=== PATIENT | female | born 1950 | race Caucasian/White ===

== ENCOUNTER → 2017-10-30 12:10 | Outpatient (CLI) | payer MEDICARE, OTHER, SELFPAY ==
--- NOTE | 2017-10-30 | DI.MG.S_ITS ---
BILATERAL DIGITAL SCREENING MAMMOGRAM 3D/2D WITH CAD: 10/30/2017 CLINICAL: Routine screening. Family history of breast cancer. Comparison is made to exams dated: 05/25/2016 mammogram, 01/05/2015 mammogram, and 01/20/2014 mammogram - [facility]. The tissue of both breasts is heterogeneously dense. This may lower the sensitivity of mammography. Current study was also evaluated with a Computer Aided Detection (CAD) system. No significant masses, calcifications, or other findings are seen in either breast. There has been no significant interval change. IMPRESSION: NEGATIVE There is no mammographic evidence of malignancy. A 1 year screening mammogram is recommended. This exam was interpreted at Station ID: [id number]. NOTE: For mammograms, a report in lay terms will be sent to the patient. Approximately 15% of breast malignancies will not be visualized mammographically. In the management of a palpable breast mass, a negative mammogram must not discourage biopsy of a clinically suspicious lesion. Electronically Signed By: Blanca prince/cade:10/30/2017 17:03:24 letter sent: Normal Exam ACR BI-RADS Category 1: Negative 3341F
== END ==
PROVIDERS: PCP Family Medicine; Visit Provider Family Medicine
DX: Z12.31 Encounter for screening mammogram for malignant neoplasm of breast (principal); Z80.3 Family history of malignant neoplasm of breast; M85.851 Other specified disorders of bone density and structure, right thigh
CPT/HCPCS: 77063; 77067; 77080

== ENCOUNTER → 2018-04-29 14:30 | Outpatient (CLI) | payer MEDICARE, OTHER, SELFPAY ==
[2018-04-29 14:52] LABS: Hematocrit 40.4 % (36-46); Hemoglobin 14.1 g/dL (12.0-16.0)
== END ==
PROVIDERS: PCP Family Medicine; Visit Provider Family Medicine
DX: Z01.812 Encounter for preprocedural laboratory examination (principal)
CPT/HCPCS: 36415; 85014; 85018

== ENCOUNTER → 2018-04-30 15:44 | Outpatient (CLI) | payer MEDICARE, OTHER, SELFPAY ==
--- NOTE | 2018-04-30 15:46 | DI.CT.S_ITS ---
PROCEDURE: CT CHEST WO CON INDICATIONS: chronic cough TECHNIQUE: Noncontrast 5 mm thick sections acquired from the pulmonary apices to the posterior costophrenic angles. 7 mm thick coronal and sagittal MIP reformats were then acquired. For radiation dose reduction, the following was used: automated exposure control, adjustment of mA and/or kV according to patient size. COMPARISON: None. FINDINGS: Image quality: Excellent. Lungs and pleura: No acute air space opacities. No pleural effusions or pneumothorax. Central and peripheral airways are patent and normal in caliber. Mediastinum: Heart size is normal. No pericardial effusion. No mediastinal adenopathy by size criteria. Thoracic aorta and central pulmonary arteries are normal in size. Esophagus is normal in caliber. No hiatal hernia. Bones and chest wall: No suspicious bony lesions. No vertebral body compression fractures. No axillary or supraclavicular adenopathy by size criteria. Thyroid gland appears normal where well visualized. Abdomen: Visualized upper abdominal solid organs and bowel loops appear normal in the absence of contrast. IMPRESSION: Normal for age, source of current symptoms is not seen. Dictated by: James Roe M.D. on 04/30/2018 at 17:03 Approved by: James Roe M.D. on 04/30/2018 at 17:03
== END ==
PROVIDERS: PCP Family Medicine; Visit Provider Family Medicine
DX: R05 Cough (principal)
CPT/HCPCS: 71250

== ENCOUNTER → 2018-05-24 08:33 | Outpatient (CLI) | payer MEDICARE, OTHER, SELFPAY ==
--- NOTE | 2018-05-30 11:58 | PM.PFT.1 ---
Pulmonary Function Test Referral & Results Date Patient Seen: 05/24/18 Requesting provider: Alok Watson Indication: Cough Results: The spirometry demonstrates an FVC of 3.57 L which is 115% of predicted. The FEV1 was measured at 2.68 L which is 113% of predicted. The FEV1/FVC ratio was 75 which is 97% of predicted. Following the administration of bronchodilator there was no appreciable change to above normal numbers. Lung volumes show an SVC of 3.64 L which is 124% of predicted. The diffusing capacity was measured at 18.19 which is 74% of predicted. No hemoglobin value was provided, so no correction for potential anemia could be made, if appropriate. The maximum voluntary ventilation was normal Interpretation: This study demonstrates normal spirometry and slight reduction in diffusing capacity suggesting some element of disease at the capillary alveolar level Patient's flow volume loop does have a bit of a curve to his suggesting the possibility of some very minimal element of obstructive lung disease based on that alone although again spirometric numbers were normal Clinical correlation suggested
== END ==
PROVIDERS: PCP Family Medicine; Visit Provider Family Medicine
DX: R05 Cough (principal)
CPT/HCPCS: 94060; 94726; 94729

== ENCOUNTER → 2018-07-16 07:02 | Outpatient (CLI) | payer MEDICARE, OTHER, SELFPAY ==
[2018-07-16 09:15] LABS: Cholesterol 227 mg/dL (140-199); HDL Cholesterol 34 mg/dL (40-60); LDL Cholesterol Calculated 118 mg/dL (<100); Triglycerides 374 mg/dL (35-150)
[2018-07-16 09:33] LABS: Free T3, Triiodothyronine Free 3.91 pg/mL (2.77-5.27); T4 Total Thyroxine 6.29 ug/dL (5.5-11.0)
[2018-07-16 09:47] LABS: Thyroid Stimulating Hormone 0.93 uIU/mL (0.47-4.68)
== END ==
PROVIDERS: PCP Family Medicine; Visit Provider Family Medicine
DX: E03.9 Hypothyroidism, unspecified (principal); E78.2 Mixed hyperlipidemia; R73.03 Prediabetes; Z78.9 Other specified health status
CPT/HCPCS: 36415; 80061; 84436; 84443; 84481

== ENCOUNTER → 2018-11-07 07:44 | Outpatient (CLI) | payer MEDICARE, OTHER, SELFPAY ==
--- NOTE | 2018-11-07 07:45 | DI.MG.S_ITS ---
BILATERAL DIGITAL SCREENING MAMMOGRAM 3D/2D WITH CAD: 11/07/2018 CLINICAL: Routine screening. Family history of breast cancer. Comparison is made to exams dated: 10/30/2017 mammogram, 05/25/2016 mammogram, and 01/05/2015 mammogram - [facility]. The tissue of both breasts is heterogeneously dense. This may lower the sensitivity of mammography. Current study was also evaluated with a Computer Aided Detection (CAD) system. No significant masses, calcifications, or other findings are seen in either breast. There has been no significant interval change. IMPRESSION: NEGATIVE There is no mammographic evidence of malignancy. A 1 year screening mammogram is recommended. This exam was interpreted at Station ID: [id number]. NOTE: For mammograms, a report in lay terms will be sent to the patient. Approximately 15% of breast malignancies will not be visualized mammographically. In the management of a palpable breast mass, a negative mammogram must not discourage biopsy of a clinically suspicious lesion. Electronically Signed By: Daren guerrier/cade:11/07/2018 09:42:16 letter sent: Normal Exam ACR BI-RADS Category 1: Negative 3341F
== END ==
PROVIDERS: PCP Family Medicine; Visit Provider Family Medicine
DX: Z12.31 Encounter for screening mammogram for malignant neoplasm of breast (principal); Z80.3 Family history of malignant neoplasm of breast
CPT/HCPCS: 77063; 77067

== ENCOUNTER → 2019-01-02 11:37 | Outpatient (CLI) | payer MEDICARE, OTHER, SELFPAY ==
--- NOTE | 2019-01-02 11:41 | DI.RAD.S_ITS ---
PROCEDURE: XR LUMBAR SPINE 2-3V INDICATIONS: Low back pain TECHNIQUE: 3 views of the lumbar spine were acquired. COMPARISON: None. FINDINGS: Bones: 5 [id number] vertebrae are present. There is grade I L5 on S1 anterolisthesis. Mild degenerative changes including intervertebral disc space narrowing, endplate sclerosis, and facet sclerosis are present throughout the mid and lower lumbar spine. No vertebral body compression fractures. No suspicious bony lesions. Soft tissues: Overlying bowel gas pattern is normal. Atheromatous calcifications are present throughout the abdominal aorta. IMPRESSION: Mild degenerative change. Aortic atherosclerosis. Dictated by: Blanca Major M.D. on 01/02/2019 at 12:28 Approved by: Blanca Major M.D. on 01/02/2019 at 12:29
== END ==
PROVIDERS: PCP Family Medicine; Visit Provider Family Medicine
DX: M47.816 Spondylosis without myelopathy or radiculopathy, lumbar region (principal); M47.817 Spondylosis without myelopathy or radiculopathy, lumbosacral region; M54.5 Low back pain
CPT/HCPCS: 72100

== ENCOUNTER → 2019-01-09 07:19 | Outpatient (CLI) | payer MEDICARE, OTHER, SELFPAY ==
--- NOTE | 2019-01-09 07:21 | DI.MRI.S_ITS ---
PROCEDURE: MR LUMBAR SPINE WO CON INDICATIONS: Pain TECHNIQUE: Noncontrast sagittal T1 spin echo and T2 fast echo, sagittal STIR, axial T1 and T2 fast spin echo through the lumbar spine. In cases with scoliosis, additional coronal T2 fast spin echo may be performed. COMPARISON: None. FINDINGS: Image quality: Excellent. Alignment and Curvature: There is minimal anterolisthesis seen at the L5-S1 level. Associated pars defects are not seen on these images. Bone Marrow: Marrow is of normal overall signal. No acute vertebral body compression fractures. Spinal Cord: Conus medullaris terminates at the L1 level. Visualized cord demonstrates normal signal and size. Paraspinous Soft Tissues: No paravertebral masses. A simple appearing cyst is seen along the lateral aspect of the right kidney that measures 1.6 cm. T11-T12: Bridging endplate osteophytes are seen. Mild to moderate disc bulge is seen. There is mild to moderate left-sided and no significant right-sided neural foraminal narrowing seen. No significant central canal is seen. T12-L1: Normal appearance. L1-L2: Normal appearance. L2-L3: No significant abnormality is seen. L3-L4: Mild loss of disc height is seen. Loss of disc signal is seen. Mild to moderate disc bulge is seen. Nmum-or-tepknkbw facet hypertrophy is seen. No significant neural foraminal narrowing can be seen. Mild central canal narrowing is seen. L4-L5: The disc height is well-preserved. Loss of disc signal is seen at this level. Mild to moderate disc bulge is seen, which is eccentric to the right. Moderate facet joint hypertrophy is seen. No significant neural foraminal or central canal narrowing can be seen. L5-S1: The disc height is well-preserved. Loss of disc signal is seen at this level. Mild generalized disc bulge is seen. Moderate to prominent facet joint hypertrophy is seen. There is moderate left-sided and moderate to severe right-sided neural foraminal narrowing seen. There is associated compression seen upon the exiting right L5 nerve root. No central canal narrowing is seen. IMPRESSION: Lumbar spine degenerative changes are seen, which are most prominent at the L5-S1 level. At this level, there is moderate to severe right-sided neural foraminal narrowing, with associated exiting nerve compression involving the right L5 nerve root. Dictated by: Job Browne M.D. on 01/09/2019 at 10:47 Approved by: Job Browne M.D. on 01/09/2019 at 10:52
== END ==
PROVIDERS: PCP Family Medicine; Visit Provider Family Medicine
DX: M54.5 Low back pain (principal); M47.817 Spondylosis without myelopathy or radiculopathy, lumbosacral region; M47.816 Spondylosis without myelopathy or radiculopathy, lumbar region; M48.061 Spinal stenosis, lumbar region without neurogenic claudication; M48.07 Spinal stenosis, lumbosacral region
CPT/HCPCS: 72148

== ENCOUNTER → 2019-04-29 06:42 | Outpatient (CLI) | payer MEDICARE, OTHER, SELFPAY ==
[2019-04-29 08:14] LABS: Add Manual Diff / Slide Review NO; Basophils Absolute Auto 100 /uL (0-100); Basophils Percent Auto 1.4 % (0-2); Eosinophils Absolute Auto 300 /uL (0-450); Eosinophils Percent Auto 4.9 % (2-4); Hematocrit 41.6 % (36-46); Hemoglobin 14.4 g/dL (12.0-16.0); Lymphocytes Absolute Auto 2500 /uL (1100-4500); Lymphocytes Percent Auto 47.9 % (25-40); Mean Corpuscular HGB Conc 34.6 % (30-36); Mean Corpuscular Hemoglobin 31.9 PG (26-34); Mean Corpuscular Volume 92.3 fL (80-100); Monocytes Absolute Auto 300 /uL (0-900); Monocytes Percent Auto 6.7 % (3-14); Neutrophils Absolute Auto 2000 /uL (1500-7000); Neutrophils Percent Auto 39.1 % (50-75); Platelet Count 207 X10^3/uL (150-400); Red Blood Cell Count 4.51 X10^6/uL (4.0-5.2); Red Cell Distribution Width 12.6 % (11.6-14.8); White Blood Cell Count 5.2 X10^3/uL (4.5-11.0)
[2019-04-29 08:24] LABS: Hemoglobin A1C% w Est Avg Glu 5.9 % (4.0-6.0)
[2019-04-29 08:31] LABS: Alanine Aminotransferase 21 IU/L (<35); Albumin 4.5 g/dL (3.5-5.0); Albumin Globulin Ratio 1.7 (1.0-2.8); Alkaline Phosphatase 69 U/L (38-126); Aspartate Aminotransferase 24 IU/L (14-36); Bilirubin Total 0.6 mg/dL (0.2-1.3); Blood Urea Nitrogen 20 mg/dL (7-17); Calcium 9.4 mg/dL (8.4-10.2); Carbon Dioxide 30 mmol/L (22-32); Chloride 102 mmol/L (98-107); Cholesterol 242 mg/dL (140-199); Estimated Glomerular Filt Rate > 60.0 mL/min (>60); Globulin 2.7 g/dL (1.7-4.1); Glucose 129 mg/dL (80-110); HDL Cholesterol 28 mg/dL (40-60); HEMOLYSIS < 15 (0-50); Sodium 141 mmol/L (137-145); Total Protein 7.2 g/dL (6.3-8.2)
[2019-04-29 08:44] LABS: Triglycerides 634 mg/dL (35-150)
[2019-04-29 08:57] LABS: Thyroid Stimulating Hormone 1.14 uIU/mL (0.47-4.68)
== END ==
PROVIDERS: PCP Family Medicine; Visit Provider Family Medicine
DX: R73.03 Prediabetes (principal)
CPT/HCPCS: 36415; 80053; 80061; 83036; 84443; 85025

== ENCOUNTER → 2019-08-25 06:56 | Outpatient (CLI) | payer MEDICARE, OTHER, SELFPAY ==
[2019-08-25 07:45] LABS: Cholesterol 272 mg/dL (140-199); HDL Cholesterol 30 mg/dL (40-60); Triglycerides 457 mg/dL (35-150)
== END ==
PROVIDERS: PCP Family Medicine; Referring Provider Family Medicine; Visit Provider Family Medicine
DX: E78.2 Mixed hyperlipidemia (principal)
CPT/HCPCS: 36415; 80061

== ENCOUNTER → 2019-08-26 09:58 | Outpatient (CLI) | payer MEDICARE, OTHER, SELFPAY ==
--- NOTE | 2019-08-26 10:01 | DI.RAD.S_ITS ---
PROCEDURE: XR SHOULDER LT MIN 2V INDICATIONS: Pain TECHNIQUE: 3 views of the shoulder were acquired. COMPARISON: None. FINDINGS: Bones: No fractures or dislocations. No suspicious bony lesions. Visualized ribs appear intact. Soft tissues: No suspicious soft tissue calcifications. IMPRESSION: Mild to moderate degenerative osteoarthritic change at the a.c. joint. Mild osteoarthritis at the glenohumeral joint. Dictated by: James Roe M.D. on 08/26/2019 at 10:47 Approved by: James Roe M.D. on 08/26/2019 at 10:48
--- NOTE | 2019-08-26 10:01 | DI.RAD.S_ITS ---
PROCEDURE: XR SHOULDER RT MIN 2V INDICATIONS: Pain TECHNIQUE: 3 views of the shoulder were acquired. COMPARISON: [facility], CR, XR SHOULDER LT MIN 2V, 08/26/2019, 10:00. FINDINGS: Bones: No fractures or dislocations. No suspicious bony lesions. Visualized ribs appear intact. Soft tissues: No suspicious soft tissue calcifications. IMPRESSION: Mild to moderate a.c. joint osteoarthritis, moderate glenohumeral joint osteoarthritis. The osteoarthritic changes greater on the right than the left at the glenohumeral joint. Dictated by: James Roe M.D. on 08/26/2019 at 10:48 Approved by: James Roe M.D. on 08/26/2019 at 10:48
== END ==
PROVIDERS: PCP Family Medicine; Referring Provider Family Medicine; Visit Provider Family Medicine
DX: M25.611 Stiffness of right shoulder, not elsewhere classified (principal); M19.011 Primary osteoarthritis, right shoulder; M25.512 Pain in left shoulder; M19.012 Primary osteoarthritis, left shoulder
CPT/HCPCS: 73030

== ENCOUNTER → 2019-12-17 09:19 | Outpatient (CLI) | payer MEDICARE, OTHER, SELFPAY ==
--- NOTE | 2019-12-17 | DI.US.S_ITS ---
ULTRASOUND OF LEFT BREAST: 12/17/2019 CLINICAL: Area redness left axilla. Comparison is made to exams dated: 12/17/2019 mammogram, 11/07/2018 mammogram, 10/30/2017 mammogram, and 05/25/2016 mammogram - [facility]. Ultrasound of the left breast was performed on the area of interest. Calderon scale images of the real-time examination were reviewed. IMPRESSION: NEGATIVE There is no sonographic evidence of malignancy. There is no mammographic or sonographic abnormality seen in the left axilla to correspond with the area of clinical concern in the left axilla, however, clinical followup is recommended. Return to annual mammogram screening schedule is recommended. This exam was interpreted at Station ID: [id number]. Electronically Signed By: Blanca prince/:12/17/2019 15:31:53 letter sent: Clinical Evaluation Ultrasound BI-RADS: 1 Negative
--- NOTE | 2019-12-17 09:20 | DI.MG.S_ITS ---
BILATERAL DIGITAL DIAGNOSTIC MAMMOGRAM 3D/2D: 12/17/2019 CLINICAL: Left axilla lymph node. Comparison is made to exams dated: 11/07/2018 mammogram, 10/30/2017 mammogram, and 05/25/2016 mammogram - [facility]. The tissue of both breasts is heterogeneously dense. This may lower the sensitivity of mammography. No significant masses, calcifications, or other findings are seen in either breast. IMPRESSION: INCOMPLETE: NEEDS ADDITIONAL IMAGING EVALUATION There is no mammographic abnormality seen in the left axilla to correspond with the area of clinical concern in the left axilla, however, A targeted ultrasound of the left axilla is recommended and will be performed immediately following this exam. This exam was interpreted at Station ID: [id number]. NOTE: For mammograms, a report in lay terms will be sent to the patient. Approximately 15% of breast malignancies will not be visualized mammographically. In the management of a palpable breast mass, a negative mammogram must not discourage biopsy of a clinically suspicious lesion. Electronically Signed By: Blnaca Major M.D. lk/:12/17/2019 09:55:23 ACR BI-RADS Category 0: Incomplete 3340F
== END ==
PROVIDERS: PCP Family Medicine; Referring Provider Nurse Practitioner Family; Visit Provider Nurse Practitioner Family
DX: R92.8 Other abnormal and inconclusive findings on diagnostic imaging of breast (principal); R59.0 Localized enlarged lymph nodes
CPT/HCPCS: 76882; 77066; G0279

== ENCOUNTER → 2020-03-16 07:00 | Outpatient (CLI) | payer MEDICARE, OTHER, SELFPAY ==
[2020-03-16 09:00] LABS: Add Manual Diff / Slide Review NO; Basophils Absolute Auto 100 /uL (0-100); Basophils Percent Auto 1.1 % (0-2); Eosinophils Absolute Auto 200 /uL (0-450); Eosinophils Percent Auto 3.4 % (2-4); Hematocrit 39.1 % (36-46); Hemoglobin 13.6 g/dL (12.0-16.0); Lymphocytes Absolute Auto 2200 /uL (1100-4500); Mean Corpuscular HGB Conc 34.8 % (30-36); Mean Corpuscular Hemoglobin 31.8 PG (26-34); Mean Corpuscular Volume 91.3 fL (80-100); Monocytes Absolute Auto 300 /uL (0-900); Monocytes Percent Auto 6.9 % (3-14); Neutrophils Absolute Auto 1900 /uL (1500-7000); Neutrophils Percent Auto 40.6 % (50-75); Platelet Count 190 X10^3/uL (150-400); Red Blood Cell Count 4.28 X10^6/uL (4.0-5.2); Red Cell Distribution Width 12.6 % (11.6-14.8); White Blood Cell Count 4.6 X10^3/uL (4.5-11.0)
[2020-03-16 09:23] LABS: Alanine Aminotransferase 21 IU/L (<35); Albumin 4.1 g/dL (3.5-5.0); Albumin Globulin Ratio 1.5 (1.0-2.8); Alkaline Phosphatase 54 U/L (38-126); Aspartate Aminotransferase 25 IU/L (14-36); Bilirubin Total 0.5 mg/dL (0.2-1.3); Blood Urea Nitrogen 19 mg/dL (7-17); Calcium 8.9 mg/dL (8.4-10.2); Carbon Dioxide 33 mmol/L (22-32); Chloride 103 mmol/L (98-107); Cholesterol 195 mg/dL (140-199); Estimated Glomerular Filt Rate > 60.0 mL/min (>60); Globulin 2.7 g/dL (1.7-4.1); Glucose 128 mg/dL (80-110); HDL Cholesterol 28 mg/dL (40-60); HEMOLYSIS 17 (0-50); LDL Cholesterol Calculated 87 mg/dL (<100); Potassium 3.8 mmol/L (3.4-5.1); Sodium 140 mmol/L (137-145); Total Protein 6.8 g/dL (6.3-8.2); Triglycerides 399 mg/dL (35-150)
[2020-03-16 09:36] LABS: Free T3, Triiodothyronine Free 3.51 pg/mL (2.77-5.27); Free T4, Direct Thyroxine 0.81 ng/dL (0.78-2.19)
[2020-03-16 09:50] LABS: Thyroid Stimulating Hormone 1.39 uIU/mL (0.47-4.68)
== END ==
PROVIDERS: PCP Family Medicine; Referring Provider Family Medicine; Visit Provider Family Medicine
DX: E78.2 Mixed hyperlipidemia (principal); R73.03 Prediabetes
CPT/HCPCS: 36415; 80053; 80061; 84439; 84443; 84481; 85025

== ENCOUNTER → 2020-03-17 12:10 | Outpatient (CLI) | payer MEDICARE, OTHER, SELFPAY ==
[2020-03-18 09:22] LABS: Fecal Immunochemical Test Negative (Negative)
== END ==
PROVIDERS: PCP Family Medicine; Referring Provider Family Medicine; Visit Provider Family Medicine
DX: Z12.11 Encounter for screening for malignant neoplasm of colon (principal)
CPT/HCPCS: 82274

== ENCOUNTER → 2020-04-01 11:54 | Outpatient (CLI) | payer MEDICARE, OTHER, SELFPAY ==
[2020-04-01 13:37] LABS: Hemoglobin A1C% w Est Avg Glu 6.3 % (4.0-6.0)
[2020-04-01 14:22] LABS: Cholesterol 242 mg/dL (140-199); HDL Cholesterol 30 mg/dL (40-60)
[2020-04-01 14:39] LABS: Triglycerides 659 mg/dL (35-150)
== END ==
PROVIDERS: PCP Family Medicine; Referring Provider Family Medicine; Visit Provider Family Medicine
DX: E78.2 Mixed hyperlipidemia (principal); R73.03 Prediabetes
CPT/HCPCS: 36415; 80061; 83036

== ENCOUNTER → 2020-07-29 09:43 | Outpatient (CLI) | payer MEDICARE, OTHER, SELFPAY | PROVIDERS: PCP Family Medicine; Visit Provider Nurse Practitioner | DX: R35.0 Frequency of micturition (principal) | CPT/HCPCS: 87086 ==

== ENCOUNTER → 2020-11-30 08:37 | Outpatient (CLI) | payer MEDICARE, OTHER, SELFPAY ==
--- NOTE | 2020-11-30 08:38 | DI.RAD.S_ITS ---
PROCEDURE: XR HIP W PEL IF DONE RT 2V INDICATIONS: pain, perhaps hip TECHNIQUE: AP pelvis with lateral view(s) of the right hip(s). COMPARISON: None. FINDINGS: Bones: No fractures or dislocations. Pelvic ring appears intact. No suspicious bony lesions. There is mild bilateral degenerative hip joint space narrowing with small periarticular osteophytes. No erosions. Soft tissues: The visualized bowel gas pattern is normal. No suspicious soft tissue calcifications. Clips are noted within the right and left lower pelvis suggestive of fallopian tube clips. 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 Dictated by: Kerri Dumas M.D. on 11/30/2020 at 10:25 Approved by: Kerri Dumas M.D. on 11/30/2020 at 10:26
== END ==
PROVIDERS: PCP Family Medicine; Referring Provider Family Medicine; Visit Provider Family Medicine
DX: R10.31 Right lower quadrant pain (principal); G89.29 Other chronic pain
CPT/HCPCS: 73502

== ENCOUNTER → 2020-12-15 06:45 | Outpatient (CLI) | payer MEDICARE, OTHER, SELFPAY ==
[2020-12-15 08:26] LABS: Add Manual Diff / Slide Review NO; Basophils Absolute Auto 100 /uL (0-100); Eosinophils Absolute Auto 200 /uL (0-450); Eosinophils Percent Auto 3.6 % (2-4); Hematocrit 38.8 % (36-46); Hemoglobin 13.7 g/dL (12.0-16.0); Lymphocytes Absolute Auto 2100 /uL (1100-4500); Lymphocytes Percent Auto 39.9 % (25-40); Mean Corpuscular HGB Conc 35.3 % (30-36); Mean Corpuscular Hemoglobin 32.2 PG (26-34); Mean Corpuscular Volume 91.3 fL (80-100); Monocytes Absolute Auto 400 /uL (0-900); Monocytes Percent Auto 7.5 % (3-14); Neutrophils Absolute Auto 2600 /uL (1500-7000); Platelet Count 179 X10^3/uL (150-400); Red Blood Cell Count 4.24 X10^6/uL (4.0-5.2); Red Cell Distribution Width 12.9 % (11.6-14.8); White Blood Cell Count 5.4 X10^3/uL (4.5-11.0)
[2020-12-15 08:43] LABS: Hemoglobin A1C% w Est Avg Glu 6.3 % (4.0-6.0)
[2020-12-15 08:50] LABS: Alanine Aminotransferase 14 IU/L (<35); Albumin 4.2 g/dL (3.5-5.0); Albumin Globulin Ratio 1.6 (1.0-2.8); Alkaline Phosphatase 56 U/L (38-126); Aspartate Aminotransferase 19 IU/L (14-36); BUN Creatinine Ratio 22.7 (6-22); Bilirubin Total 0.5 mg/dL (0.2-1.3); Blood Urea Nitrogen 17 mg/dL (7-17); Calcium 9.5 mg/dL (8.4-10.2); Carbon Dioxide 29 mmol/L (22-32); Chloride 105 mmol/L (98-107); Cholesterol 232 mg/dL (140-199); Estimated Glomerular Filt Rate > 60.0 mL/min (>60); Globulin 2.6 g/dL (1.7-4.1); Glucose 128 mg/dL (80-110); HDL Cholesterol 34 mg/dL (40-60); HEMOLYSIS < 15 (0-50); LDL Cholesterol Calculated 154 mg/dL (<100); Potassium 4.6 mmol/L (3.4-5.1); Sodium 139 mmol/L (137-145); Total Protein 6.8 g/dL (6.3-8.2); Triglycerides 219 mg/dL (35-150)
== END ==
PROVIDERS: PCP Family Medicine; Referring Provider Family Medicine; Visit Provider Family Medicine
DX: E05.90 Thyrotoxicosis, unspecified without thyrotoxic crisis or storm (principal); I10 Essential (primary) hypertension; R73.03 Prediabetes; E78.2 Mixed hyperlipidemia
CPT/HCPCS: 36415; 80053; 80061; 83036; 85025

== ENCOUNTER → 2021-01-06 10:49 | Outpatient (CLI) | payer MEDICARE, OTHER, SELFPAY ==
--- NOTE | 2021-01-06 | DI.MG.S_ITS ---
BILATERAL DIGITAL SCREENING MAMMOGRAM 3D/2D WITH CAD: 01/06/2021 CLINICAL: Routine screening. Family history of breast cancer. Comparison is made to exams dated: 12/17/2019 mammogram, 11/07/2018 mammogram, and 10/30/2017 mammogram - [facility]. The tissue of both breasts is heterogeneously dense. This may lower the sensitivity of mammography. Current study was also evaluated with a Computer Aided Detection (CAD) system. No significant masses, calcifications, or other findings are seen in either breast. There has been no significant interval change. IMPRESSION: NEGATIVE There is no mammographic evidence of malignancy. A 1 year screening mammogram is recommended. This exam was interpreted at Station ID: [id number]. NOTE: For mammograms, a report in lay terms will be sent to the patient. Approximately 15% of breast malignancies will not be visualized mammographically. In the management of a palpable breast mass, a negative mammogram must not discourage biopsy of a clinically suspicious lesion. Electronically Signed By: Israel badillo/cade:01/06/2021 11:48:31 letter sent: Normal Exam ACR BI-RADS Category 1: Negative 3341F
== END ==
PROVIDERS: PCP Family Medicine; Referring Provider Family Medicine; Visit Provider Family Medicine
DX: Z12.31 Encounter for screening mammogram for malignant neoplasm of breast (principal); Z80.3 Family history of malignant neoplasm of breast
CPT/HCPCS: 77063; 77067

== ENCOUNTER → 2021-02-10 07:38 | Outpatient (CLI) | payer MEDICARE, OTHER, SELFPAY ==
--- NOTE | 2021-02-10 | DI.ECHO.S_ITS ---
[facility]---------+ [facility] +---------+ : : [address] : : : : [place], [place] : : : : [id number] : : : : Phone: [phone]+ Echocardiogram Report + + :Name: JENNIFER MUNOZ Study Date: 02/10/2021 Height: 64 in : :[facility] ReadingLocation: Weight: 142 lb : : Gender: Female BSA: 1.7 m2 : :: 1950 Age: 70 yrs BP: 159/96 mmHg: :Reason For Study: Dyspnea : :Ordering Physician: ROBERTO, : :EMELIA Performed By: Storm Jules : :Referring: EMELIA MEJIA : + + Interpretation Summary 1) Normal left ventricular thickness, size, wall motion, and systolic function (EF 55-60%). 2) Normal right ventricular size and function. 3) No significant valvular abnormalities. 4) The right ventricular systolic pressure is estimated to be at least 20 mmHg based on an estimated right atrial pressure of 3 mm Hg. 5) Hypertension present during the study (BP 159/96mmHg). 6) No prior Echo available for comparison. Procedure: A two-dimensional transthoracic echocardiogram with color flow and Doppler was performed. The study quality was technically adequate. There is no prior echocardiogram noted for this patient. The patient was in sinus rhythm with heart rates between 49-64 bpm during the exam. Left Ventricle: The left ventricle is normal in size and wall thickness. Left ventricular systolic function is normal. The ejection fraction is estimated to be 55-60%. There are no focal wall motion abnormalities. Diastolic parameters suggest probable normal left ventricular diastolic function and normal filling pressures. Right Ventricle: The right ventricle is normal in size and function. Atria: Both atria are normal in size. There is no Doppler evidence for an interatrial shunt. Mitral Valve: There is mild mitral annular calcification. There is mild mitral regurgitation. Aortic Valve: The aortic valve is normal in structure and function. There is no aortic valve stenosis. No aortic regurgitation is present. Tricuspid Valve: The tricuspid valve is normal in structure and function. There is trace tricuspid regurgitation. The right ventricular systolic pressure is estimated to be at least 20 mmHg based on an estimated right atrial pressure of 3 mm Hg. Pulmonic Valve: The pulmonic valve is not well visualized. Great Vessels: The aortic root is normal size. The dimensions of the ascending aorta are normal. The IVC is of normal diameter and collapses greater than 50% with a sniff. This suggests a low right atrial pressure of 3 mm Hg. Pericardium/ Pleura There is no pericardial effusion. There is no pleural effusion. MMode/2D Measurements & Calculations LVIDd: 4.8 cm LVOT diam: 2.1 cm LVIDs: 3.2 cm Ao root diam: 2.8 cm FS: 33.3 % asc Aorta Diam: 3.3 cm IVSd: 0.80 cm LVPWd: 0.90 cm LV villagomez. diameter/BSA (cm/m^2): 2.8 LV sys. diameter/BSA (cm/m^2): 1.9 LA dimension: 3.0 cm RA long axis: 4.4 cm LA A2 area: 15.1 cm2 IVC diam: 1.6 cm LA A4 area: 15.1 cm2 LA length (vol): 4.7 cm LA vol: 40.9 ml LA vol index: 24.2 ml/m2 TAPSE_phl: 2.1 cm Doppler Measurements & Calculations Ao V2 max: 113.0 cm/sec LVOT Max Kathryn: 93.3 cm/sec Ao V2 mean: 72.3 cm/sec LV V1 max P.5 mmHg Ao max P.0 mmHg LV V1 VTI: 21.8 cm Ao mean P.0 mmHg FRANCK(I,D): 3.2 cm2 Ao V2 VTI: 23.7 cm FRANCK(V,D): 2.9 cm2 sev ratio: 0.92 FRANCK indexed to BSA (cm^2/m^2): 1.9 MV E max kathryn: 66.0 cm/sec TR max kathryn: 208.0 cm/sec MV A max kathryn: 82.7 cm/sec TR max P.3 mmHg MV E/A: 0.80 PA pr(Accel): 44.4 mmHg Med Peak E' Kathryn: 4.9 cm/sec E/E' med: 13.4 Lat Peak E' Kathryn: 6.6 cm/sec E/E' lat: 10.0 E/e' average: 11.7 MV dec time: 0.27 sec SV(LVOT): 75.5 ml AV VR_phl: 0.83 FRANCK(VTI)/BSA_phl: 1.9 MV P1/2t-pr_phl: 78.0 msec Reading Physician:10:25 AM
[2021-02-10 10:33] LABS: COVID19 -Nasal RAPID Negative (Negative)
--- NOTE | 2021-02-10 18:00 | DI.NM.S_ITS ---
DATE OF SERVICE: 02/10/2021 PROCEDURE PERFORMED: Exercise perfusion study. INDICATIONS: Shortness of breath with underlying hypertension and hyperlipidemia. RADIOPHARMACEUTICAL: 25.7 millicurie technetium-99m Myoview IV was injected at stress and 10.6 millicurie technetium-99m Myoview IV was injected at rest. CARDIAC STRESS: The patient underwent exercise perfusion study under the supervision of an attending staff. The patient walked on Magno protocol for 6 minutes and 32 seconds, achieved 93 percent of target heart rate. Baseline blood pressure 140/88. Peak blood pressure 172/92. No chest pain. Patient did experience shortness of breath. Baseline EKG revealed sinus rhythm. During stress, no convincing ischemic changes. Some PACs and PVCs were seen without any complex sustained arrhythmias. RAW DATA: There is increased subdiaphragmatic activity. Stress LV ejection fraction 85 percent and resting LV ejection fraction 75 percent without any obvious wall motion abnormalities. Resting end-diastolic volume 59 mL. TID ratio 0.77, which is within normal limits. Lung/heart ratio 0.38, which is within normal limits. MYOCARDIAL PERFUSION SCAN: Stress supine and resting supine, as well as stress prone images, were compared to each other. Stress supine and resting supine, as well as stress prone images, revealed normal myocardial perfusion. CONCLUSION: This is a normal myocardial perfusion study. Functional aerobic impairment -10 percent. Appropriate hemodynamic response. No chest pain, but did have shortness of breath. No significant complex arrhythmias. Preserved left ventricular function. As far as cardiac perfusion scan is concerned, this is a low-risk myocardial perfusion scan. Chantelle Deluna - Shruthi/caryn doc#: [id number]/job#: [id number] dd: 02/10/2021 17:15:00 dt: 02/10/2021 17:41:00 DICTATING MD/COPIES TO: Rae Leach MD COPIES MNE: JEFFRY;
== END ==
PROVIDERS: PCP Physician Assistant; Referring Provider Physician Assistant; Visit Provider Physician Assistant
DX: I34.0 Nonrheumatic mitral (valve) insufficiency (principal); R06.09 Other forms of dyspnea; R06.02 Shortness of breath; I10 Essential (primary) hypertension; E78.5 Hyperlipidemia, unspecified
CPT/HCPCS: 78452; 87635; 93017; 93306; A9502

== ENCOUNTER → 2021-03-08 11:37 | Outpatient (CLI) | payer MEDICARE, OTHER, SELFPAY ==
--- NOTE | 2021-03-08 11:41 | DI.CT.S_ITS ---
PROCEDURE: CT CHEST WO CON INDICATIONS: Shortness of breath TECHNIQUE: Noncontrast 5 mm thick sections acquired from the pulmonary apices to the posterior costophrenic angles. 1 mm lung window, 5 mm thick coronal and sagittal and 7 mm axial MIP reformats were then acquired. For radiation dose reduction, the following was used: automated exposure control, adjustment of mA and/or kV according to patient size. COMPARISON: [facility], CT, CT CHEST WO CON, 04/30/2018, 15:40. FINDINGS: Image quality: Excellent. Lungs and pleura: There are a few stable scar-like nodular densities in the right upper lobe measuring less than 5 mm, 3/79, 82, 156, and a solid soft tissue nodule measuring 8 mm in the right lateral costophrenic sulcus, 3/212. In the left lower lobe posteriorly, there is a 3 mm nodule, and a juxta fissural nodule at the same level, 3/191. No suspicious ground-glass opacity, new masses or consolidations. No pleural effusion. Mediastinum: Heart size is normal. Moderate coronary artery calcification. No pericardial effusion. No mediastinal adenopathy by size criteria. Thoracic aorta and central pulmonary arteries are normal in size. Mild aortic arch calcification. Esophagus is normal in caliber. No hiatal hernia. Bones and chest wall: No suspicious bony lesions. Degenerative disc height loss and endplate spurs in the thoracic spine. No vertebral body compression fractures. No axillary or supraclavicular adenopathy by size criteria. Thyroid gland is partially imaged and the visible portion is grossly normal. . Abdomen: The few hypodensities in the liver seen are stable. Visualized upper abdominal solid organs and bowel loops appear normal in the absence of contrast. IMPRESSION: 1. No explanation for shortness of breath. 2. Several chronic tiny lung nodules, right more numerous than left. 3. Moderate coronary artery calcification. Dictated by: Alejandra Chadwick M.D. on 03/08/2021 at 13:55 Approved by: Alejandra Chadwick M.D. on 03/08/2021 at 14:04
== END ==
PROVIDERS: PCP Physician Assistant; Referring Provider Physician Assistant; Visit Provider Physician Assistant
DX: R06.02 Shortness of breath (principal); R91.8 Other nonspecific abnormal finding of lung field; I25.10 Atherosclerotic heart disease of native coronary artery without angina pectoris
CPT/HCPCS: 71250

== ENCOUNTER → 2021-04-25 06:54 | Outpatient (CLI) | payer MEDICARE, OTHER, SELFPAY ==
--- NOTE | 2021-04-25 | DI.US.S_ITS ---
PROCEDURE: US CAROTID DOPPLER BI INDICATIONS: STENOSIS TECHNIQUE: Color and pulse Doppler interrogation was performed of both carotid systems, with image documentation and velocity measurements. COMPARISON: [facility], , CAROTID ARTERY DOPPLER BILAT, 01/30/2017, 7:13. FINDINGS: Stenosis calculations are based on SRU (Society of Radiologists in Ultrasound) criteria. Right side: Brachial blood pressure: 122/80 mm Hg. Common carotid artery peak systolic velocity: 91 cm/sec. Internal carotid artery peak systolic velocity: 86 cm/sec. (Previously 71 cm/s). Internal carotid artery end diastolic velocity: 27 cm/sec. External carotid artery peak systolic velocity: 129 cm/sec. ICA/CCA peak systolic ratio: 0.9. (Previously 0.9). Calderon scale imaging description: Mild calcified plaque. Percent internal carotid artery stenosis: Less than 50 % stenosis. Vertebral artery: Flow direction is antegrade. Left side: Brachial blood pressure: 110/77 mm Hg. Common carotid artery peak systolic velocity: 79 cm/sec. Internal carotid artery peak systolic velocity: 133 cm/sec. (Previously 187 cm/s). Internal carotid artery end diastolic velocity: 45 cm/sec. External carotid artery peak systolic velocity: 131 cm/sec. ICA/CCA peak systolic ratio: 1.7. (Previously 2.4). Calderon scale imaging description: Moderate calcified plaque. Percent internal carotid artery stenosis: 50-69 % stenosis range category based on ICA peak systolic velocity. Vertebral artery: Flow direction is antegrade. IMPRESSION: 1. Right ICA: Less than 50 % stenosis. 2. Left ICA: 50-69 % stenosis. Unchanged. 3. Antegrade flow in the bilateral vertebral arteries. Dictated by: Johnny Renee M.D. on 04/25/2021 at 8:34 Approved by: Johnny Renee M.D. on 04/25/2021 at 8:41
== END ==
PROVIDERS: PCP Physician Assistant; Referring Provider Student in an Organized Health Care Education/Training Program; Visit Provider Student in an Organized Health Care Education/Training Program
DX: I65.22 Occlusion and stenosis of left carotid artery (principal)
CPT/HCPCS: 93880

== ENCOUNTER → 2021-05-31 07:08 | Outpatient (CLI) | payer MEDICARE, OTHER, SELFPAY ==
[2021-05-31 08:26] LABS: Add Manual Diff / Slide Review NO; Basophils Absolute Auto 0 /uL (0-100); Eosinophils Absolute Auto 200 /uL (0-450); Eosinophils Percent Auto 4.9 % (2-4); Hematocrit 39.3 % (36-46); Hemoglobin 13.9 g/dL (12.0-16.0); Lymphocytes Absolute Auto 2200 /uL (1100-4500); Lymphocytes Percent Auto 46.7 % (25-40); Mean Corpuscular HGB Conc 35.5 % (30-36); Mean Corpuscular Hemoglobin 31.9 PG (26-34); Monocytes Absolute Auto 300 /uL (0-900); Monocytes Percent Auto 6.6 % (3-14); Neutrophils Absolute Auto 1900 /uL (1500-7000); Neutrophils Percent Auto 40.8 % (50-75); Platelet Count 209 X10^3/uL (150-400); Red Blood Cell Count 4.36 X10^6/uL (4.0-5.2); Red Cell Distribution Width 12.8 % (11.6-14.8); White Blood Cell Count 4.8 X10^3/uL (4.5-11.0)
[2021-05-31 08:53] LABS: Alanine Aminotransferase 22 IU/L (<35); Albumin 4.4 g/dL (3.5-5.0); Albumin Globulin Ratio 1.8 (1.0-2.8); Alkaline Phosphatase 73 U/L (38-126); Aspartate Aminotransferase 26 IU/L (14-36); BUN Creatinine Ratio 21.1 (6-22); Bilirubin Total 0.5 mg/dL (0.2-1.3); Blood Urea Nitrogen 16 mg/dL (7-17); Calcium 9.7 mg/dL (8.4-10.2); Carbon Dioxide 31 mmol/L (22-32); Chloride 103 mmol/L (98-107); Estimated Glomerular Filt Rate > 60.0 mL/min (>60); Globulin 2.4 g/dL (1.7-4.1); Glucose 113 mg/dL (80-110); HEMOLYSIS < 15 (0-50); Potassium 4.3 mmol/L (3.4-5.1); Sodium 140 mmol/L (137-145); Total Protein 6.8 g/dL (6.3-8.2)
[2021-05-31 09:17] LABS: TSH w/ Reflex to FT4 0.63 uIU/mL (0.47-4.68)
[2021-05-31 09:54] LABS: Folate 7.9 ng/mL (2.76-20.0); Vitamin B12 > 1000 pg/mL (239-931)
== END ==
PROVIDERS: PCP Physician Assistant; Referring Provider Physician Assistant; Visit Provider Physician Assistant
DX: M79.10 Myalgia, unspecified site (principal); R41.3 Other amnesia; R73.9 Hyperglycemia, unspecified
CPT/HCPCS: 36415; 80053; 82607; 82746; 83036; 84443; 85025

== ENCOUNTER → 2021-08-08 13:46 | Outpatient (CLI) | payer MEDICARE, OTHER, SELFPAY ==
--- NOTE | 2021-08-08 | DI.MRI.S_ITS ---
PROCEDURE: MR LUMBAR SPINE WO CON INDICATIONS: RADICULOPATHY, LUMBAR REGION TECHNIQUE: Noncontrast sagittal T1 spin echo and T2 fast echo, sagittal STIR, axial T1 and T2 fast spin echo through the lumbar spine. In cases with scoliosis, additional coronal T2 fast spin echo may be performed. COMPARISON: [facility], MR, MR LUMBAR SPINE WO CON, 01/09/2019, 7:57. FINDINGS: Image quality: Excellent. Alignment and Curvature: Redemonstration of minimal grade 1 anterolisthesis of L5 on S1. Bone Marrow: Marrow is of normal overall signal. No acute vertebral body compression fractures. Spinal Cord: Conus medullaris terminates at the L1 level. Visualized cord demonstrates normal signal and size. Paraspinous Soft Tissues: No paravertebral masses. Posterior right renal cyst is again noted. T12-L1: Normal appearance. L1-L2: Normal appearance. L2-L3: Mild bilateral facet arthropathy. No significant neuroforaminal stenosis. No significant spinal canal stenosis. L3-L4: Mild disc height loss as before. Mild loss of disc signal intensity. Moderate bilateral facet arthropathy. Mild-moderate symmetric disc bulge. No significant neuroforaminal stenosis. No significant spinal canal stenosis. L4-L5: No significant disc height loss. There is mild loss of disc signal at this level. Moderate-prominent bilateral facet arthropathy. Mild asymmetric to the right disc bulge. No significant spinal canal stenosis. No significant neuroforaminal stenosis. L5-S1: Minimal disc height loss compared to prior study. Mild loss of disc signal at this level. Mild symmetric disc bulge. Moderate-severe bilateral facet arthropathy. Moderate-severe right neural foraminal narrowing as before. There is mild compression of the exiting right L5 nerve root at this level. Moderate left neural foraminal narrowing. No significant spinal canal stenosis. IMPRESSION: Multilevel, multifactorial lumbar spondylosis as detailed above by vertebral body level. Findings are again most severe at L5-S1 where there is severe right-sided neural foraminal stenosis with associated compression of the exiting L5 nerve root. There is moderate-severe left sided neural foraminal stenosis at L5-S1. Overall, findings appear stable to minimally progressed. Dictated by: Daren Amaya M.D. on 08/08/2021 at 18:32 Approved by: Daren Amaya M.D. on 08/08/2021 at 18:45
== END ==
PROVIDERS: PCP Physician Assistant; Referring Provider Physical Medicine & Rehabilitation; Visit Provider Physical Medicine & Rehabilitation
DX: M47.26 Other spondylosis with radiculopathy, lumbar region (principal); M47.27 Other spondylosis with radiculopathy, lumbosacral region; M48.061 Spinal stenosis, lumbar region without neurogenic claudication; M48.07 Spinal stenosis, lumbosacral region
CPT/HCPCS: 72148

== ENCOUNTER → 2022-02-23 14:18 | Outpatient (CLI) | payer MEDICARE, OTHER, SELFPAY ==
--- NOTE | 2022-02-23 14:20 | DI.MG.S_ITS ---
BILATERAL DIGITAL SCREENING MAMMOGRAM 3D/2D WITH CAD: 02/23/2022 CLINICAL: Routine screening. Family history of breast cancer. Comparison is made to exams dated: 01/06/2021 mammogram, 12/17/2019 mammogram, 11/07/2018 mammogram, and 10/30/2017 mammogram - [facility]. Both breasts are heterogeneously dense, which may obscure small masses (category c / 51-75% glandular tissue). Current study was also evaluated with a Computer Aided Detection (CAD) system. No significant masses, calcifications, or other findings are seen in either breast. There has been no significant interval change. IMPRESSION: NEGATIVE There is no mammographic evidence of malignancy. A 1 year screening mammogram is recommended. Based on the Tyrer Cuzick model (a risk assessment model) the patient's lifetime risk is 12.3% and her 10 year risk is 7.9%. According to the ACR, ACS, and NCCN guidelines, an annual breast MRI exam along with mammogram is recommended if the patient's lifetime risk is 20% or greater. This exam was interpreted at Station ID: [id number]. NOTE: For mammograms, a report in lay terms will be sent to the patient. Approximately 15% of breast malignancies will not be visualized mammographically. In the management of a palpable breast mass, a negative mammogram must not discourage biopsy of a clinically suspicious lesion. Electronically Signed By: Daren guerrier/cade:02/23/2022 17:10:03 letter sent: Normal Exam ACR BI-RADS Category 1: Negative [id number]
== END ==
PROVIDERS: PCP Physician Assistant; Referring Provider Physician Assistant; Visit Provider Physician Assistant
DX: Z12.31 Encounter for screening mammogram for malignant neoplasm of breast (principal); Z80.3 Family history of malignant neoplasm of breast
CPT/HCPCS: 77063; 77067

== ENCOUNTER → 2022-03-10 06:54 | Outpatient (CLI) | payer MEDICARE, OTHER, SELFPAY ==
[2022-03-10 08:41] LABS: Add Manual Diff / Slide Review NO; Basophils Absolute Auto 0 /uL (0-100); Basophils Percent Auto 0.8 % (0-2); Eosinophils Absolute Auto 300 /uL (0-450); Eosinophils Percent Auto 4.4 % (2-4); Hematocrit 39.6 % (36-46); Hemoglobin 13.8 g/dL (12.0-16.0); Lymphocytes Absolute Auto 2400 /uL (1100-4500); Lymphocytes Percent Auto 40.3 % (25-40); Mean Corpuscular HGB Conc 34.9 % (30-36); Mean Corpuscular Hemoglobin 31.6 PG (26-34); Mean Corpuscular Volume 90.4 fL (80-100); Monocytes Absolute Auto 400 /uL (0-900); Monocytes Percent Auto 7.3 % (3-14); Neutrophils Absolute Auto 2800 /uL (1500-7000); Neutrophils Percent Auto 47.2 % (50-75); Platelet Count 198 X10^3/uL (150-400); Red Blood Cell Count 4.38 X10^6/uL (4.0-5.2); Red Cell Distribution Width 12.9 % (11.6-14.8)
[2022-03-10 09:10] LABS: Alanine Aminotransferase 21 IU/L (<35); Albumin 4.3 g/dL (3.5-5.0); Albumin Globulin Ratio 1.7 (1.0-2.8); Alkaline Phosphatase 87 U/L (38-126); Aspartate Aminotransferase 20 IU/L (14-36); BUN Creatinine Ratio 26.3 (6-22); Bilirubin Total 0.3 mg/dL (0.2-1.3); Blood Urea Nitrogen 20 mg/dL (7-17); Calcium 8.9 mg/dL (8.4-10.2); Carbon Dioxide 27 mmol/L (22-32); Chloride 100 mmol/L (98-107); Cholesterol 162 mg/dL (140-199); Estimated Glomerular Filt Rate > 60 mL/min (>60); Globulin 2.5 g/dL (1.7-4.1); Glucose 139 mg/dL (80-110); HDL Cholesterol 34 mg/dL (40-60); HEMOLYSIS < 15 (0-50); LDL Cholesterol Calculated 91 mg/dL (<100); Potassium 3.7 mmol/L (3.4-5.1); Sodium 141 mmol/L (137-145); Total Protein 6.8 g/dL (6.3-8.2); Triglycerides 183 mg/dL (35-150)
[2022-03-10 10:14] LABS: Folate 10.4 ng/mL (2.76-20.0); Vitamin B12 954 pg/mL (239-931)
[2022-03-10 10:37] LABS: Creatinine Urine Random 139.2 mg/dL
[2022-03-10 10:41] LABS: Microalbumi Creatinin Ratio Ur 6.4 ug/mg CR (<30); Microalbumin Urine Random 0.9 mg/dL (0-1.6)
[2022-03-10 10:52] LABS: Vitamin D 25 Hydroxy (D3) 49.1 ng/mL (30.0-100.0)
== END ==
PROVIDERS: PCP Family Medicine; Referring Provider Family Medicine; Visit Provider Family Medicine
DX: E78.2 Mixed hyperlipidemia (principal); E56.9 Vitamin deficiency, unspecified; I10 Essential (primary) hypertension; I25.10 Atherosclerotic heart disease of native coronary artery without angina pectoris; I65.29 Occlusion and stenosis of unspecified carotid artery; R73.9 Hyperglycemia, unspecified
CPT/HCPCS: 36415; 80053; 80061; 82043; 82306; 82570; 82607; 82746; 85025

== ENCOUNTER → 2022-03-22 08:35 | Outpatient (CLI) | payer MEDICARE, OTHER, SELFPAY ==
[2022-03-22 10:02] LABS: Hemoglobin A1C% w Est Avg Glu 6.3 % (4.0-6.0)
[2022-03-22 10:47] LABS: TSH w/ Reflex to FT4 1.17 uIU/mL (0.47-4.68)
== END ==
PROVIDERS: PCP Family Medicine; Referring Provider Family Medicine; Visit Provider Family Medicine
DX: R73.9 Hyperglycemia, unspecified (principal); E78.2 Mixed hyperlipidemia; I10 Essential (primary) hypertension; I25.10 Atherosclerotic heart disease of native coronary artery without angina pectoris; I65.29 Occlusion and stenosis of unspecified carotid artery; E56.9 Vitamin deficiency, unspecified
CPT/HCPCS: 83036; 84443

== ENCOUNTER → 2022-05-25 10:31 | Outpatient (CLI) | payer MEDICARE, OTHER, SELFPAY | PROVIDERS: PCP Family Medicine; Referring Provider Family Medicine; Visit Provider Family Medicine | DX: Z78.0 Asymptomatic menopausal state (principal); M85.88 Other specified disorders of bone density and structure, other site | CPT/HCPCS: 77080 ==

== ENCOUNTER → 2022-08-07 06:44 | Outpatient (CLI) | payer OTHER, SELFPAY ==
[2022-08-07 08:01] LABS: Add Manual Diff / Slide Review NO; Basophils Absolute Auto 0 /uL (0-100); Eosinophils Absolute Auto 300 /uL (0-450); Eosinophils Percent Auto 5.5 % (2-4); Hemoglobin 13.3 g/dL (12.0-16.0); Lymphocytes Absolute Auto 2200 /uL (1100-4500); Lymphocytes Percent Auto 43.4 % (25-40); Mean Corpuscular Hemoglobin 31.5 PG (26-34); Mean Corpuscular Volume 89.9 fL (80-100); Monocytes Absolute Auto 300 /uL (0-900); Monocytes Percent Auto 6.7 % (3-14); Neutrophils Absolute Auto 2200 /uL (1500-7000); Neutrophils Percent Auto 43.4 % (50-75); Platelet Count 190 X10^3/uL (150-400); Red Blood Cell Count 4.22 X10^6/uL (4.0-5.2); Red Cell Distribution Width 13.5 % (11.6-14.8); White Blood Cell Count 5.1 X10^3/uL (4.5-11.0)
[2022-08-07 08:05] LABS: Alanine Aminotransferase 20 IU/L (<35); Albumin Globulin Ratio 1.7 (1.0-2.8); Alkaline Phosphatase 60 U/L (38-126); Aspartate Aminotransferase 19 IU/L (14-36); BUN Creatinine Ratio 23.9 (6-22); Bilirubin Total 0.5 mg/dL (0.2-1.3); Blood Urea Nitrogen 17 mg/dL (7-17); Calcium 8.8 mg/dL (8.4-10.2); Carbon Dioxide 29 mmol/L (22-32); Chloride 103 mmol/L (98-107); Cholesterol 217 mg/dL (140-199); Estimated Glomerular Filt Rate > 60 mL/min (>60); Globulin 2.4 g/dL (1.7-4.1); Glucose 112 mg/dL (80-110); HDL Cholesterol 43 mg/dL (40-60); HEMOLYSIS < 15 (0-50); LDL Cholesterol Calculated 144 mg/dL (<100); Potassium 3.9 mmol/L (3.4-5.1); Sodium 140 mmol/L (137-145); Total Protein 6.4 g/dL (6.3-8.2); Triglycerides 152 mg/dL (35-150)
[2022-08-07 08:12] LABS: Hemoglobin A1C% w Est Avg Glu 6.1 % (4.0-6.0)
[2022-08-07 08:37] LABS: Ferritin 82 ng/mL (11-264)
== END ==
PROVIDERS: PCP Family Medicine; Referring Provider Family Medicine; Visit Provider Family Medicine
DX: E78.2 Mixed hyperlipidemia (principal); R73.03 Prediabetes; I10 Essential (primary) hypertension; E03.9 Hypothyroidism, unspecified; R06.02 Shortness of breath; G25.81 Restless legs syndrome
CPT/HCPCS: 36415; 80053; 80061; 82728; 83036; 83735; 84443; 85025

== ENCOUNTER → 2023-01-11 08:13 | Outpatient (CLI) | payer OTHER, SELFPAY | PROVIDERS: PCP Registered Nurse; Referring Provider Registered Nurse; Visit Provider Registered Nurse | DX: R06.09 Other forms of dyspnea (principal); Z87.891 Personal history of nicotine dependence; J98.8 Other specified respiratory disorders | CPT/HCPCS: 94060; 94726; 94729 ==

== ENCOUNTER → 2023-02-26 08:28 | Outpatient (CLI) | payer OTHER, SELFPAY ==
--- NOTE | 2023-02-26 | DI.MG.S_ITS ---
BILATERAL DIGITAL SCREENING MAMMOGRAM 3D/2D WITH CAD: 02/26/2023 CLINICAL: Routine screening. Family history of breast cancer. Comparison is made to exams dated: 02/23/2022 mammogram, 01/06/2021 mammogram, and 12/17/2019 mammogram - [facility]. Both breasts are heterogeneously dense, which may obscure small masses (category c / 51-75% glandular tissue). Current study was also evaluated with a Computer Aided Detection (CAD) system. No significant masses, calcifications, or other findings are seen in either breast. There has been no significant interval change. IMPRESSION: NEGATIVE There is no mammographic evidence of malignancy. A 1 year screening mammogram is recommended. Based on the Tyrer Cuzick model (a risk assessment model) the patient's lifetime risk is 11.6% and her 10 year risk is 8.0%. According to the ACR, ACS, and NCCN guidelines, an annual breast MRI exam along with mammogram is recommended if the patient's lifetime risk is 20% or greater. This exam was interpreted at Station ID: [id number]. NOTE: For mammograms, a report in lay terms will be sent to the patient. Approximately 15% of breast malignancies will not be visualized mammographically. In the management of a palpable breast mass, a negative mammogram must not discourage biopsy of a clinically suspicious lesion. Electronically Signed By: Jalen rubin/cade:02/26/2023 09:09:39 letter sent: Normal Exam ACR BI-RADS Category 1: Negative [id number]
== END ==
PROVIDERS: PCP Registered Nurse; Referring Provider Registered Nurse; Visit Provider Registered Nurse
DX: Z12.31 Encounter for screening mammogram for malignant neoplasm of breast (principal); Z80.3 Family history of malignant neoplasm of breast
CPT/HCPCS: 77063; 77067

== ENCOUNTER → 2023-08-27 10:54 | Outpatient (CLI) | payer OTHER, SELFPAY ==
--- NOTE | 2023-08-27 | DI.RAD.S_ITS ---
PROCEDURE: XR CHEST 2V INDICATIONS: COUGH TECHNIQUE: 2 views of the chest were acquired. COMPARISON: [facility], CR, XR CHEST 1V, 10/10/2017, 11:04. FINDINGS: Surgical changes and devices: None. Lungs and pleura: Lungs are clear. No pleural effusions or pneumothorax. Mediastinum: Aortic arch calcifications are seen. Heart size is normal. Bones and chest wall: No suspicious bony abnormalities. Soft tissues appear unremarkable. IMPRESSION: No acute cardiopulmonary pathology. Dictated by: Tin Gonzales M.D. on 08/27/2023 at 15:34 Approved by: Tin Gonzales M.D. on 08/27/2023 at 15:38
== END ==
LOC: RAD 11:04
PROVIDERS: PCP Registered Nurse; Referring Provider Internal Medicine Pulmonary Disease; Visit Provider Internal Medicine Pulmonary Disease
DX: R05.9 Cough, unspecified (principal)
CPT/HCPCS: 71046

== ENCOUNTER 2023-10-01 10:58 | Emergency (ER) | payer OTHER, SELFPAY ==
[2023-10-01 11:36] VITALS: BP 135/74; PULSE 71; RESP 18; TEMP 36.7; O2SAT 98; BMI 25.2
--- NOTE | 2023-10-01 11:41 | DI.RAD.S_ITS ---
PROCEDURE: XR WRIST RT 2V INDICATIONS: wrist pain, fell TECHNIQUE: 2 views of the wrist were acquired. COMPARISON: None. FINDINGS: Bones: Mildly displaced radial styloid fracture with intra-articular extension. Mild displaced fracture of the ulnar styloid. No suspicious bony lesions. Soft tissues: No suspicious soft tissue calcifications. IMPRESSION: Mildly displaced fractures of the radial styloid with intra-articular extension and the ulnar styloid. Dictated by: Pelon Kwon M.D. on 10/01/2023 at 12:06 Approved by: Pelon Kwon M.D. on 10/01/2023 at 12:15
--- NOTE | 2023-10-01 11:57 | ED.FALL ---
HPI - Fall General Chief Complaint: Fall Stated Complaint: fall, head injury, right wrist pain Time Seen by Provider: 10/01/23 11:55 Source: patient Mode of arrival: Ambulatory History of Present Illness HPI Narrative: 73-year-old woman with a history of hypertension, hyperlipidemia, hypothyroidism, restless leg syndrome who was chasing her dog down her driveway and suffered a fall on an outstretched right wrist. She noticed immediate pain there is slight deformity she was able to get up off the ground and get to the emergency room without complication. She does not describe any other injuries. Was otherwise doing well until she tripped. Related Data Previous Rx's Medication Instructions Recorded diclofenac sodium 1 % topical gel 4 gram topical QID #100 grams 09/10/19 valacyclovir 500 mg tablet 500 mg PO BID #30 tabs 04/01/20 sertraline 50 mg tablet 50 mg PO DAILY #90 tabs 07/14/20 levothyroxine 75 mcg tablet See Rx Instructions .Route 07/20/20 .COMPLEX #90 tabs carisoprodol 350 mg tablet See Rx Instructions .Route 10/18/20 .COMPLEX #30 tabs pravastatin 20 mg tablet 20 mg PO DAILY #90 tabs 11/30/20 triamterene 37.5 See Rx Instructions .Route 04/18/21 mg-hydrochlorothiazide 25 mg tablet .COMPLEX #90 tabs pramipexole 0.125 mg tablet See Rx Instructions .Route 10/03/21 .COMPLEX #180 tabs ondansetron 4 mg disintegrating 4 mg PO Q8H PRN nausea and 10/01/23 tablet vomiting #20 tabs oxycodone-acetaminophen 5 mg-325 1 tab PO Q6H PRN pain #20 tabs 10/01/23 mg tablet Allergies Allergy/AdvReac Type Severity Reaction Status Date / Time cephalexin [CEPHALEXIN] Allergy Unknown Verified 10/01/23 11:41 Penicillins [PENICILLINS] Allergy Unknown Verified 10/01/23 11:41 zolpidem [ZOLPIDEM] Allergy Unknown Verified 10/01/23 11:41 rosuvastatin AdvReac Intermediate Joint Verified 10/01/23 11:41 pain/ stiffness Review of Systems Review of Systems Narrative: Pertinent positive and negative findings as per HPI Patient History Medical History (Updated 10/01/23 @ 14:31 by Vanita Rao MD) Chronic left shoulder pain Chronic right hip pain Dermoid cyst of scalp Transient global amnesia Anxiety Elevated fasting glucose Left upper arm pain Sacral region somatic dysfunction Pelvic somatic dysfunction Groin pain, chronic, right Epitrochlear lymphadenopathy (12/09/19) Axillary lymphadenopathy (12/09/19) Osteoarthritis Psoriasis (2003) Hyperthyroidism Abnormal Pap smear of cervix Depression Hayfever Hypothyroidism Hyperlipidemia Hypertension RLS (restless legs syndrome) (1998) Herpes (1970) History of vaginal delivery Stenosis of left carotid artery (09/15/15) Surgical History Anesthesia History of removal of cyst Status post tubal ligation Status post loop electrosurgical excision procedure (LEEP) of cervix History of elective Family History Mother Hyperlipidemia History of carotid endarterectomy Glaucoma Acid reflux Hypertension Lung cancer Grandmother Breast cancer Sister Age: 73 Hypercalcemia Hyperlipidemia Kidney problem History of back surgery History of neck surgery Sister Age: 68 MS (multiple sclerosis) High cholesterol Mental health problem Father No problems noted. Grandfather No problems noted. Grandmother No problems noted. Sister Breast cancer Social History Smoking Status: Never smoker Smoking Status: Never smoker alcohol intake frequency: 0-2 drinks per day Substance Use Type: marijuana Exam Initial Vital Signs Initial Vital Signs: Vital Signs Temperature 98.0 F 10/01/23 11:36 Pulse Rate 71 10/01/23 11:36 Respiratory Rate 18 10/01/23 11:36 Blood Pressure 135/74 10/01/23 11:36 Pulse Oximetry 98 10/01/23 11:36 Oxygen Delivery Method Room Air 10/01/23 11:36 General: Healthy appearing, in pain but Able to give a complete and coherent history. Well-nourished well-developed HEENT: Moist mucous membranes, normal sclera with reactive pupils, head is atraumatic Neck: No cervical spine pain Respiratory: Lungs are clear to auscultation, no wheezing no rales no rhonchi. Full and symmetrical air movement Cardiac: Regular rate and rhythm no murmurs no bruits Abdomen: Soft, nontender, good bowel tones, no flank pain Skin: Warm and dry, no rashes Neurologic: Grossly neurologically intact with no obvious asymmetries or abnormalities Extremities: Lower extremities and left upper extremity are unremarkable. Right wrist is slightly deformed and tender to touch with bruising developing. She is neurovascularly intact distal to that and proximal to that has no pain or tenderness of the elbow shoulder. Psych: Cooperative, appropriate insight and affect Course Orders Ordered: ED Orders 10/01/23 11:41 XR wrist RT 2V Stat 10/01/23 12:37 CT UE RT wo con Stat Discontinued Medications Ibuprofen (Ibuprofen 400 Mg Tablet) 400 mg PO NOW ONE Stop: 10/01/23 12:01 Last Admin: 10/01/23 12:29 Dose: 400 mg Documented By: MUSA Ondansetron HCl (Ondansetron 4 Mg Odt) 4 mg SL NOW ONE Stop: 10/01/23 14:16 Last Admin: 10/01/23 14:18 Dose: 4 mg Documented By: MUSA Ondansetron HCl (Ondansetron 4 Mg Odt) 4 mg SL NOW ONE Stop: 10/01/23 14:18 Last Admin: 10/01/23 14:19 Dose: Not Given Documented By: MUSA Oxycodone/Acetaminophen (Oxycodone/Acetaminophen 5/325 Tablet) 1 tab PO NOW ONE Stop: 10/01/23 12:01 Last Admin: 10/01/23 12:29 Dose: 1 tab Documented By: MUSA Vital Signs Vital signs: Vital Signs - 8 hr 10/01/23 11:36 10/01/23 14:21 Temperature 98.0 F Pulse Rate 71 56 L Respiratory Rate 18 18 Blood Pressure 135/74 128/63 Pulse Oximetry 98 98 Oxygen Delivery Method Room Air Room Air MDM - Fall MDM Narrative Medical decision making narrative: CC: Fall on outstretched hand, right side Complicating co-morbidities: Hypertension, hyperlipidemia, hypothyroidism Data collected from: patient Differential considered: Simple fracture, complex fracture, wrist strain, additional traumatic findings from her fall. As fall as described as purely mechanical I am less concerned with medical reasons for syncope that may have led to a fall Exam documented above, pertinent findings include: Exam is benign exception and right wrist pain and mild deformity Imaging studies independently reviewed: Initial x-ray shows comminuted impacted distal radius fracture Consultations: Reviewed with Orthopedics, Dr. Aguirre. Requests CT scan and we will see the patient in clinic Treatments: 400 mg of ibuprofen, 1 Percocet, 4 mg of Zofran ODT Procedure: Sugar-tong splint is placed by nursing staff. Prior to placement patient was complaining of burning pain in her fingers but could feel and move fingers and had good capillary refill. The sensation was not changed by sugar-tong placement. Pain was overall better controlled in her wrist in the proximal part of her forearm. She is also placed in a sling and sling placement is reviewed by me prior to discharge. Discussion: A 73-year-old woman tripped and has a comminuted impacted distal radius fracture. CT scan has been done for perioperative planning. Care is reviewed with orthopedist. Findings reviewed with the patient. She continues to have tingling paresthesia type pain in her fingers but is neurovascularly intact with reasonable capillary refill. Reviewed care of splint use sling and importance of calling to schedule follow up orthopedic visit for definitive treatment. She is given prescription for Percocet as well as Zofran. She is safe for discharge Discharge Plan Departure Patient Disposition: Home Clinical Impression: Fracture of wrist, closed Qualifiers: Encounter type: initial encounter Laterality: right Qualified Code(s): S62.101A - Fracture of unspecified carpal bone, right wrist, initial encounter for closed fracture Instructions: DI for Wrist Fracture Activity Restrictions/Additional Instructions: Thank you for coming in today I am sorry you had this fall. Unfortunately you do have a complicated wrist fracture. It very likely is going to need surgery. These types of fractures can be very painful. You have been placed in a splint to allow for additional swelling. You do need to follow up with [facility]. I reviewed your case with Dr. Aguirre. Please call his office at [phone], explain that you are in the emergency department have a complex wrist fracture and need to be seen for definitive treatment. Using 400 mg of ibuprofen (2 [id number] pills) and 1 Tylenol every 6 hours can be very helpful in controlling pain. For severe pain you can use 1 Percocet and 400 mg of ibuprofen. If you choose to use Percocet, please keep in mind that it does have narcotic in a there is the potential for addiction and it can cause nausea as well as constipation. The pain in the wrist can also exacerbate your nausea. I have given you a prescription for ondansetron to use to control nausea as well If you find that things are getting worse or rather than just tingling in your fingers you are no longer able to actually feel your fingers, at is not acceptable and you do need to return to the emergency department Prescriptions: New oxycodone-acetaminophen 5-325 mg tablet 1 tab PO Q6H PRN (Reason: pain) Qty: 20 0RF ondansetron 4 mg tablet,disintegrating 4 mg PO Q8H PRN (Reason: nausea and vomiting) Qty: 20 0RF No Action diclofenac sodium 1 % gel 4 gram TOP QID Qty: 100 5RF Rx Instructions: apply small amount to both shoulders four times daily for pain. sertraline 50 mg tablet 50 mg PO DAILY Qty: 90 3RF levothyroxine 75 mcg tablet See Rx Instructions .ROUTE .COMPLEX Qty: 90 3RF Dose Instruction: take 1 tablet by mouth every morning Rx Instructions: take 1 tablet by mouth every morning carisoprodol 350 mg tablet See Rx Instructions .ROUTE .COMPLEX Qty: 30 0RF Dose Instruction: take 1 tablet by mouth at bedtime Rx Instructions: take 1 tablet by mouth at bedtime triamterene-hydrochlorothiazid 37.5-25 mg tablet See Rx Instructions .ROUTE .COMPLEX Qty: 90 0RF Dose Instruction: take 1/2 tablet by mouth once daily Rx Instructions: take 1/2 tablet by mouth once daily pramipexole 0.125 mg tablet See Rx Instructions .ROUTE .COMPLEX Qty: 180 0RF Dose Instruction: take 2 tablets by mouth at bedtime Rx Instructions: take 2 tablets by mouth at bedtime PT NEEDS F/U APPT WITH PROVIDER FOR FURTHER REFILLS. valacyclovir 500 mg tablet 500 mg PO BID Qty: 30 5RF Rx Instructions: Take one tablet by mouth twice daily for 3 days. pravastatin 20 mg tablet 20 mg PO DAILY Qty: 90 1RF Referrals: Marcia Marshall ARNP [Primary Care Provider] - Stand Alone Forms: Patient Portal/API
[2023-10-01] MEDS: IBUPROFEN 400 MG TABLET PO (12:29)
[2023-10-01] MEDS: OXYCODONE/ACETAMINOPHEN 5/325 TABLET 1 TAB PO (12:29)
--- NOTE | 2023-10-01 12:37 | DI.CT.S_ITS ---
PROCEDURE: CT UE RT WO CON INDICATIONS: pre-op Right wrist fx TECHNIQUE: Noncontrast 1 mm axial sections acquired through the carpal bones, with coronal and sagittal reformats. COMPARISON: [facility], CR, XR WRIST RT 2V, 10/01/2023, 11:41. FINDINGS: Image quality: Excellent. Bones: Again noted is an acute comminuted fracture involving distal radius with fracture line extending to radiocarpal joint space and base of radial styloid. There is impaction at distal radial fracture site with up to 3 mm overlapping and 3 mm lateral displacement of the radial styloid. Slight dorsal and volar displacement of fractured radial fragments are also seen. Minimally displaced fracture involving base of ulnar styloid is also seen. No other fracture or dislocation. Moderate wrist joint osteoarthritic changes are seen most notably at 1st CMC joint. No suspicious bony lesions. No CT evidence of avascular necrosis. Soft tissues: Significant soft tissue swelling and edema surrounding wrist joint is seen. Small amount of fluid within radiocarpal and ulnar carpal joint is noted, no calcified intra-articular loose bodies. No gross full-thickness wrist tendon rupture. No soft tissue mass or drainable fluid collection. IMPRESSION: 1. Acute comminuted, impacted and displaced distal radial intra-articular fracture as above. 2. Acute minimally displaced ulnar styloid base fracture. 3. Wrist joint osteoarthritis. No evidence of avascular necrosis. 4. No gross soft tissue mass or drainable fluid collection. No full-thickness tendon rupture. No abnormal soft tissue calcifications. Dictated by: Tin Gonzales M.D. on 10/01/2023 at 13:39 Approved by: Tin Gonzales M.D. on 10/01/2023 at 13:42
[2023-10-01] MEDS: ONDANSETRON 4 MG ODT SL (14:18)
[2023-10-01 14:21] VITALS: BP 128/63; PULSE 56; RESP 18; O2SAT 98
== END 2023-10-01 14:37 | disposition home or self-care (01) ==
PROVIDERS: Emergency Provider Emergency Medicine; PCP Registered Nurse
DX: S52.571A Other intraarticular fracture of lower end of right radius, initial encounter for closed fracture (principal); S52.611A Displaced fracture of right ulna styloid process, initial encounter for closed fracture; W18.30XA Fall on same level, unspecified, initial encounter
CPT/HCPCS: 73100; 73200; 99283; 99284

== ENCOUNTER → 2023-11-09 09:21 | Outpatient (CLI) | payer OTHER, SELFPAY ==
--- NOTE | 2023-11-09 09:21 | DI.RAD.S_ITS ---
PROCEDURE: XR DEXA AXIAL SKELETON INDICATIONS: OSTEOPENIA COMPARISON: [facility], CR, XR DEXA AXIAL SKELETON, 05/25/2022, 10:59. FINDINGS: Lumbar Spine: Bone mineral density 0.777 g/cm2, T score -2.5, osteoporosis. Left Hip: Bone mineral density 0.756 g/cm2, T score -1.5, osteopenia. Left Femoral Neck: Bone mineral density 0.658 g/cm2, T score minus 1.7, osteopenia. Right Hip: Bone mineral density 0.742 g/cm2, T score -1.6, osteopenia. Right Femoral Neck: Bone mineral density 0.665 g/cm2, T score -1.7, osteopenia. Fracture Risk Calculation (when applicable): 10-year fracture risk of a major osteoporotic fracture 17% and of a hip fracture 3.0%. (T score greater or equal to -1.0 to: NORMAL) (T score from -1.1 to -2.4: OSTEOPENIA) (T score less than or equal to -2.5: OSTEOPOROSIS) IMPRESSION: 1. Based on WHO criteria, the patient has osteoporosis. 2. Cannot perform statistical assessment for interval change of bone mineral density because of this similar technique and analysis methodology. Follow-up guidelines as follows: Osteoporosis: Consider a repeat DEXA and Vertebral Fracture Assessment (VFA) exam in 2 years or sooner if medically necessary, to reassess this patient's status. Osteopenia: Consider a repeat DEXA in 2-3 years to reassess this patient's status, or if there is a new clinical indication. Normal: Consider a repeat DEXA in 5 years or sooner, or if there is a new clinical indication. All treatment decisions require clinical judgment and consideration of individual patient factors, including patient preferences, comorbidities, previous drug use, risk factors not captured in the FRAX model (e.g., frailty, falls, vitamin D deficiency, increased bone turnover, interval significant decline in bone density ) and possible under- or over-estimation of fracture risk by FRAX. In addition, the NOF Guide recommends that FDA-approved medical therapies be considered in postmenopausal women and men age >= 50 years with a: * Hip or vertebral (clinical or morphometric) fracture * T-score of <=-2.5 at the spine or hip * Ten-year fracture probability by FRAX of >= 3% for hip fracture or >=20% for major osteoporotic fracture. People with diagnosed cases of osteoporosis or at high risk for fracture should have regular bone mineral density tests. For patients eligible for Medicare, routine testing is allowed once every 2 years. The testing frequency can be increased to one year for patients who have rapidly progressing disease, those who are receiving or discontinuing medical therapy to restore bone mass, or have additional risk factors. Dictated by: Marshal Walton M.D. on 11/09/2023 at 16:31 Approved by: Marshal Walton M.D. on 11/09/2023 at 16:45
== END ==
PROVIDERS: PCP Registered Nurse; Referring Provider Registered Nurse; Visit Provider Registered Nurse
DX: M81.0 Age-related osteoporosis without current pathological fracture (principal)
CPT/HCPCS: 77080

== ENCOUNTER → 2024-02-28 07:07 | Outpatient (CLI) | payer OTHER, SELFPAY ==
--- NOTE | 2024-02-28 | DI.CT.S_ITS ---
PROCEDURE: CT CHEST WO CON INDICATIONS: multiple lung nodules TECHNIQUE: Noncontrast 5 mm thick sections acquired from the pulmonary apices to the posterior costophrenic angles. 1 mm lung window, 5 mm thick coronal and sagittal and 7 mm axial MIP reformats were then acquired. For radiation dose reduction, the following was used: automated exposure control, adjustment of mA and/or kV according to patient size. COMPARISON: [facility], CT, CT LOW DOSE LUNG CA SCREENING, 02/03/2023, 13:35. [facility], CT, CT CHEST WO CON, 03/08/2021, 11:45. FINDINGS: Image quality: Excellent Lungs: Multiple pulmonary nodules, measuring up to 8 mm in the basal right lower lobe (3:239), unchanged from prior exam. No pleural effusion or pneumothorax. No pulmonary edema or focal consolidation. Mediastinal/soft tissue: Moderate calcification of the thoracic aorta. No thoracic aortic aneurysm. Heart is normal in size. No pericardial effusion. Severe three-vessel coronary artery calcification. No mediastinal, hilar, or axillary lymphadenopathy. Upper abdomen: Multiple hypoattenuating lesion in the liver, unchanged from prior exam. Calcified granuloma in the liver. Bones: No suspicious lytic or blastic osseous lesion. Moderate degenerative disease of the thoracic spine. IMPRESSION: Multiple pulmonary nodules, measuring up to 8 mm, unchanged from prior exam. LUNG-RADS 2; continued annual screening, if eligible. Clinically Significant Non-pulmonary Findings: None. Dictated by: Alysha Dash M.D. on 02/28/2024 at 13:57 Approved by: Alysha Dash M.D. on 02/28/2024 at 14:10
== END ==
LOC: CT 07:07
PROVIDERS: PCP Registered Nurse; Referring Provider Internal Medicine Pulmonary Disease; Visit Provider Internal Medicine Pulmonary Disease
DX: R91.8 Other nonspecific abnormal finding of lung field (principal); I25.10 Atherosclerotic heart disease of native coronary artery without angina pectoris; I70.0 Atherosclerosis of aorta; K76.9 Liver disease, unspecified; M51.34 Other intervertebral disc degeneration, thoracic region
CPT/HCPCS: 71250

== ENCOUNTER → 2024-02-28 07:08 | Outpatient (CLI) | payer OTHER, SELFPAY ==
--- NOTE | 2024-02-28 | DI.MG.S_ITS ---
BILATERAL DIGITAL SCREENING MAMMOGRAM 3D/2D WITH CAD: 02/28/2024 CLINICAL: Routine screening. Family history of breast cancer. Comparison is made to exams dated: 02/26/2023 mammogram, 02/23/2022 mammogram, and 01/06/2021 mammogram - [facility]. The breasts are heterogeneously dense, which may obscure small masses (category c / 51-75% glandular tissue). Current study was also evaluated with a Computer Aided Detection (CAD) system. There is a possible developing round equal density asymmetry with a spiculated margin in the right breast middle depth superior region seen on the mediolateral oblique view only. No other significant masses, calcifications, or other findings are seen in either breast. IMPRESSION: INCOMPLETE: NEED ADDITIONAL IMAGING EVALUATION The possible developing round equal density asymmetry in the right breast is indeterminate. Additional views with possible ultrasound are recommended. Based on the Tyrer Cuzick model (a risk assessment model) the patient's lifetime risk is 11.0% and her 10 year risk is 8.3%. According to the ACR, ACS, and NCCN guidelines, an annual breast MRI exam along with mammogram is recommended if the patient's lifetime risk is 20% or greater. This exam was interpreted at Station ID: [id number]. NOTE: For mammograms, a report in lay terms will be sent to the patient. Approximately 15% of breast malignancies will not be visualized mammographically. In the management of a palpable breast mass, a negative mammogram must not discourage biopsy of a clinically suspicious lesion. Electronically Signed By: Alejandra horn/cade:02/28/2024 17:38:37 letter sent: Additional Imaging Needed ACR BI-RADS Category 0: Incomplete: Need Additional Imaging Evaluation
== END ==
LOC: MAMMO 07:08
PROVIDERS: PCP Registered Nurse; Referring Provider Registered Nurse; Visit Provider Registered Nurse
DX: Z12.31 Encounter for screening mammogram for malignant neoplasm of breast (principal); Z80.3 Family history of malignant neoplasm of breast; R92.333 Mammographic heterogeneous density, bilateral breasts
CPT/HCPCS: 71250; 77063; 77067

== ENCOUNTER → 2024-03-11 09:09 | Outpatient (CLI) | payer OTHER, SELFPAY ==
--- NOTE | 2024-03-11 09:10 | DI.MG.S_ITS ---
UNILATERAL RIGHT DIGITAL DIAGNOSTIC MAMMOGRAM 3D/2D WITH ADDITIONAL VIEWS: 03/11/2024 CLINICAL: Additional evaluation requested from prior study. Comparison is made to exams dated: 02/28/2024 mammogram, 02/26/2023 mammogram, and 02/23/2022 mammogram - [facility]. The breasts are heterogeneously dense, which may obscure small masses (category c / 51-75% glandular tissue). There is an asymmetry in the right breast middle depth superior region seen on the mediolateral oblique view only. No other significant masses or calcifications are seen in the breast. IMPRESSION: INCOMPLETE: NEED ADDITIONAL IMAGING EVALUATION The asymmetry in the right breast is indeterminate. An ultrasound is recommended. Based on the Tyrer Cuzick model (a risk assessment model) the patient's lifetime risk is 11.0% and her 10 year risk is 8.3%. According to the ACR, ACS, and NCCN guidelines, an annual breast MRI exam along with mammogram is recommended if the patient's lifetime risk is 20% or greater. This exam was interpreted at Station ID: [id number]. NOTE: For mammograms, a report in lay terms will be sent to the patient. Approximately 15% of breast malignancies will not be visualized mammographically. In the management of a palpable breast mass, a negative mammogram must not discourage biopsy of a clinically suspicious lesion. Electronically Signed By: Jalen Patel M.D. lc/:03/11/2024 10:23:59 ACR BI-RADS Category 0: Incomplete: Need Additional Imaging Evaluation
--- NOTE | 2024-03-11 09:10 | DI.US.S_ITS ---
LIMITED ULTRASOUND OF RIGHT BREAST AND AXILLA: 03/11/2024 CLINICAL: Patient returns today to evaluate a focal asymmetry in the right breast. Comparison is made to exams dated: 03/11/2024 mammogram, 02/28/2024 mammogram, 02/26/2023 mammogram, 02/23/2022 mammogram, 01/06/2021 mammogram, and 12/17/2019 mammogram - [facility]. Color flow and real-time ultrasound of the right breast 10-1 o'clock, and axilla regions were performed. Calderon scale images of the real-time examination were reviewed. There is a possible 0.4 cm x 0.3 cm x 0.4 cm irregular mass in the right breast at 12 o'clock anterior depth. No significant abnormalities were seen sonographically in the right axilla. IMPRESSION: SUSPICIOUS The possible 0.4 cm x 0.3 cm x 0.4 cm irregular mass in the right breast is suspicious of malignancy. An ultrasound guided biopsy is recommended. Differential includes a complicated cyst. Margins however appear angular. This exam was interpreted at Station ID: [id number]. Electronically Signed By: Jalen Patel M.D. lc/:03/11/2024 10:28:03 letter sent: Biopsy Required ACR BI-RADS Category 4: Suspicious
== END ==
PROVIDERS: PCP Registered Nurse; Referring Provider Registered Nurse; Visit Provider Registered Nurse
DX: R92.8 Other abnormal and inconclusive findings on diagnostic imaging of breast (principal); N63.15 Unspecified lump in the right breast, overlapping quadrants; R92.333 Mammographic heterogeneous density, bilateral breasts
CPT/HCPCS: 76642; 77065; G0279

== ENCOUNTER → 2024-03-21 12:37 | Outpatient (CLI) | payer OTHER, SELFPAY ==
--- NOTE | 2024-03-21 12:38 | DI.US.S_ITS ---
ULTRASOUND GUIDED BIOPSY RIGHT BREAST WITH MARKING DEVICE INSERTED AND POST DIGITAL MAMMOGRAPHIC IMAGIN03/21/2024 CLINICAL: RT BREAST mass. PATIENT CONSENT: Risks (minor bleeding, infection, vasovagal reaction and repeat procedure), benefits and alternatives were explained to the patient and written informed consent was obtained. Correlation is made to exams dated: 03/21/2024 mammogram, 03/11/2024 ultrasound, 03/11/2024 mammogram, 02/28/2024 mammogram, 02/26/2023 mammogram, and 02/23/2022 mammogram - [facility]. An ultrasound guided biopsy using real-time ultrasound was performed for the nodule located in the right breast at 12 o'clock, 2.5 cm from the nipple. This was described on the previous ultrasound report. The skin was prepped in the usual manner. Local anesthetic was administered to the access site. A small incision was made in the breast. The abnormality was approached from the lateral aspect. A 14 gauge biopsy needle was placed adjacent to the abnormality under ultrasound guidance. Once the needle was documented to be in the correct location, four specimens were obtained using a BARD Elevation biopsy device. The patient received additional local anesthetic during the procedure. A clip was inserted into the biopsy cavity. A skin adhesive was applied to the access site. Post procedure digital mammographic imaging was obtained. The specimens were sent to the laboratory for pathological analysis. IMPRESSION: ULTRASOUND GUIDED BIOPSY BENIGN Ultrasound guided biopsy of the right breast mass at 12 o'clock, 2.5 cm from the nipple was successful with no apparent post procedure complications. Pathology indicates benign dense hyalinizing fibrosis and focal duct ectasia. Pathology results are concordant with imaging findings. Recommend follow up mammogram with possible ultrasound in 6 months to demonstrate stability. This exam was interpreted at Station ID: [id number]. Tin Gonzales M.D. Anais Abernathy M.D., Ph.D. ravi reed/:03/31/2024 16:32:51
--- NOTE | 2024-03-21 12:39 | DI.MG.S_ITS ---
UNILATERAL RIGHT DIGITAL DIAGNOSTIC MAMMOGRAM 3D/2D: 03/21/2024 CLINICAL: Post right breast ultrasound biopsy, clip placment imaging. Comparison is made to exams dated: 03/11/2024 ultrasound, 03/11/2024 mammogram, and 02/28/2024 mammogram - [facility]. The breasts are heterogeneously dense, which may obscure small masses (category c / 51-75% glandular tissue). There is a marker clip in the appropriate position in the right breast at 12 o'clock anterior depth. This marker clip placement is at the biopsy site. IMPRESSION: POST PROCEDURE MAMMOGRAM FOR MARKER PLACEMENT There was a successful marker clip placement in the right breast anterior depth. Based on the Tyrer Cuzick model (a risk assessment model) the patient's lifetime risk is 11.0% and her 10 year risk is 8.3%. According to the ACR, ACS, and NCCN guidelines, an annual breast MRI exam along with mammogram is recommended if the patient's lifetime risk is 20% or greater. This exam was interpreted at Station ID: [id number]. NOTE: For mammograms, a report in lay terms will be sent to the patient. Approximately 15% of breast malignancies will not be visualized mammographically. In the management of a palpable breast mass, a negative mammogram must not discourage biopsy of a clinically suspicious lesion. Electronically Signed By: Tin reed/caed:03/21/2024 16:55:30 ACR BI-RADS Category Post-Procedure Mammogram for Marker Placement
--- NOTE | 2024-03-21 14:03 | PATH_ITS ---
[facility] Accession Number: [id number] No. of containers..01 Tissue . 01 Material submitted: . breast - RT BREAST 12:00 . Clinical history: . 2.5CMFN 4 PASSES . 01 Diagnosis: RIGHT BREAST 12 O'CLOCK, 2.5 CM FN, IMAGE-GUIDED BIOPSIES: Fragments of benign breast parenchyma with dense hyalinizing fibrosis and focal duct ectasia, please see microscopic description. Negative for atypia, or invasive carcinoma. MRV 03/25/2024 1540 Local . 01 Electronically signed: . Leanne Mclain MD, Pathologist NPI- [id number] . 01 Gross description: . Received in formalin with two identifiers and right breast 12 o'clock 2.5 cm FN, are multiple yellow to powell soft tissue fragments aggregating to 1.6 x 1.5 x 1.0 cm. Inked yellow, filtered, and submitted entirely in cassette A1. . The specimen was removed on 03/21/2024. Time in formalin not provided. Cold ischemic time cannot be calculated. Total fixation time is approximately 48 hours. ([id number]) /JUMA 03/25/2024 1258 Local . 01 Microscopic: . Microscopic examination of the breast biopsy reveals benign breast parenchyma with predominantly dense hyalinizing fibrosis and focal duct ectasia without atypia or invasive malignancy. To better evaluate the biopsy, deeper levels and immunostains are performed with the following results: . MEAGAN (panepitheilial marker) is negative; this result supports absence of infiltrating carcinoma. P63 immunostain highlights the basal cell layer, supporting benign ducts. . These immunohistochemical results along with the morphology support the diagnosis. . Please correlate with radiologic findings to ensure that the submitted biopsy is branch service representative of the lesion. . * This test was developed and the performance characteristics were validated by [facility]. It has not been cleared or approved by the U.S. Food and Drug Administration. . 01 Pathologist provided ICD-10: N63.11 . 01 CPT . 419911, F08433, E57296 Performed at: [address] [address], [place], [place] [id number] MD Israel Monteiro MD Phone: [phone]
== END ==
PROVIDERS: PCP Registered Nurse; Referring Provider Registered Nurse; Visit Provider Registered Nurse
DX: N63.15 Unspecified lump in the right breast, overlapping quadrants (principal); N60.31 Fibrosclerosis of right breast; N60.41 Mammary duct ectasia of right breast
CPT/HCPCS: 19083; 77065

== ENCOUNTER → 2024-05-29 12:55 | Outpatient (CLI) | payer OTHER, SELFPAY ==
[2024-05-29 14:26] LABS: Estimated Glomerular Filt Rate > 60 mL/min (>60)
== END ==
PROVIDERS: PCP Registered Nurse; Referring Provider Radiology Diagnostic Radiology; Visit Provider Radiology Diagnostic Radiology
DX: F41.9 Anxiety disorder, unspecified (principal)
CPT/HCPCS: 82565

== ENCOUNTER → 2024-05-30 12:47 | Outpatient (CLI) | payer OTHER, SELFPAY ==
--- NOTE | 2024-05-30 12:49 | DI.CT.S_ITS ---
PROCEDURE: CT ANGIO NECK INDICATIONS: CAROTID STENOSIS, BILATERAL TECHNIQUE: After the administration of intravenous contrast, 1.5 mm axial sections acquired from the aortic arch to the [place]. Maximum intensity projection (MIP) reformats were then performed. COMPARISON: [facility], , CAROTID DOPPLER BI, 04/25/2021, 7:28. FINDINGS: Image quality: There is artifact associated with the metallic hardware. Artifact from the metallic hardware is reduced by metal reconstruction algorithm. This examination is limited by involuntary motion artifact. There is streak artifact seen through the level of the shoulders. Carotid system: The great vessels demonstrate a conventional anatomy as they arise from the aortic arch. Atherosclerotic calcification is noted. The origins of the common carotid arteries appear patent. The common carotid arteries demonstrate normal calibers and courses. The bifurcation regions demonstrate atherosclerotic irregularity and calcification. There is 80% narrowing seen involving the left proximal internal carotid artery. On the right, there is 50% narrowing seen. The more distal internal carotid arteries demonstrate normal course and caliber. Posterior circulation: The origins of the vertebral arteries appear patent. The more superior portions of the vertebral arteries demonstrate normal course and caliber. They join to form a normal appearing basilar artery. Soft tissues: Visualized neck soft tissues demonstrate no suspicious abnormalities. The thyroid gland demonstrates no significant abnormality. Bones: No suspicious bony lesions. Visualized cervical spine appears normally aligned. Moderate cervical spine degenerative change can be seen. IMPRESSION: There is a% narrowing involving the proximal left internal carotid artery. 50% narrowing can be seen involving the proximal right internal carotid artery. Additional findings: Moderate cervical spine degenerative change Any quantitative stenosis measurements were performed using the NASCET criteria. Dictated by: Job Browne M.D. on 05/30/2024 at 16:57 Approved by: Job Browne M.D. on 05/30/2024 at 17:01
== END ==
PROVIDERS: PCP Registered Nurse; Referring Provider Registered Nurse; Visit Provider Registered Nurse
DX: I65.23 Occlusion and stenosis of bilateral carotid arteries (principal); M47.812 Spondylosis without myelopathy or radiculopathy, cervical region
CPT/HCPCS: 70498; Q9967

== ENCOUNTER → 2024-10-07 10:11 | Outpatient (CLI) | payer MEDICARE, SELFPAY ==
[2024-10-07 11:22] LABS: Add Manual Diff / Slide Review NO; Basophils Absolute Auto 0 /uL (0-100); Basophils Percent Auto 0.7 % (0-2); Eosinophils Absolute Auto 100 /uL (0-450); Eosinophils Percent Auto 1.9 % (2-4); Hematocrit 38.6 % (36-46); Hemoglobin 13.8 g/dL (12.0-16.0); Lymphocytes Absolute Auto 2500 /uL (1100-4500); Lymphocytes Percent Auto 38.5 % (25-40); Mean Corpuscular HGB Conc 35.8 % (30-36); Mean Corpuscular Hemoglobin 32.6 PG (26-34); Mean Corpuscular Volume 91.1 fL (80-100); Monocytes Absolute Auto 400 /uL (0-900); Monocytes Percent Auto 5.4 % (3-14); Neutrophils Absolute Auto 3500 /uL (1500-7000); Neutrophils Percent Auto 53.5 % (50-75); Platelet Count 202 X10^3/uL (150-400); Red Blood Cell Count 4.24 X10^6/uL (4.0-5.2); Red Cell Distribution Width 12.8 % (11.6-14.8); White Blood Cell Count 6.5 X10^3/uL (4.5-11.0)
[2024-10-07 11:58] LABS: Hemoglobin A1C% w Est Avg Glu 5.8 % (4.0-6.0)
[2024-10-07 12:09] LABS: Alanine Aminotransferase 23 IU/L (<35); Albumin 4.6 g/dL (3.5-5.0); Alkaline Phosphatase 69 U/L (38-126); Aspartate Aminotransferase 28 IU/L (14-36); BUN Creatinine Ratio 28.8 (6-22); Bilirubin Total 0.7 mg/dL (0.2-1.3); Blood Urea Nitrogen 21 mg/dL (7-17); Calcium 9.5 mg/dL (8.4-10.2); Carbon Dioxide 25 mmol/L (22-32); Chloride 103 mmol/L (98-107); Cholesterol 207 mg/dL (140-199); Estimated Glomerular Filt Rate > 60 mL/min (>60); Globulin 2.3 g/dL (1.7-4.1); Glucose 127 mg/dL (70-99); HDL Cholesterol 42 mg/dL (40-60); HEMOLYSIS < 15 (0-50); LDL Cholesterol Calculated 127 mg/dL (<100); Potassium 3.7 mmol/L (3.4-5.1); Sodium 137 mmol/L (137-145); Total Protein 6.9 g/dL (6.3-8.2); Triglycerides 189 mg/dL (35-150)
[2024-10-07 12:36] LABS: TSH w/ Reflex to FT4 0.59 uIU/mL (0.47-4.68)
[2024-10-08 14:12] LABS: Fecal Immunochemical Test Negative (Negative)
== END ==
PROVIDERS: PCP Family Medicine; Referring Provider Family Medicine; Visit Provider Family Medicine
DX: Z11.2 Encounter for screening for other bacterial diseases (principal); R73.03 Prediabetes; E03.9 Hypothyroidism, unspecified; I10 Essential (primary) hypertension
CPT/HCPCS: 36415; 80053; 80061; 82274; 83036; 84443; 85025

== ENCOUNTER → 2025-03-09 11:56 | Outpatient (CLI) | payer MEDICARE, SELFPAY ==
--- NOTE | 2025-03-09 11:57 | DI.US.S_ITS ---
US breast RT limited, MM diagnostic mammo BI: 03/09/2025 BI-RADS: 2 CLINICAL: 74-year old female for bilateral diagnostic mammogram and right diagnostic breast ultrasound. Tyrer-Cuzick lifetime risk of 6.4%. No personal or first- degree family history of breast cancer. Current reported family history of breast cancer: maternal aunt. The patient had a prior right breast biopsy. The patient presents for follow up after biopsy. PRIOR EXAMS 03/21/2024, 03/11/2024, 02/28/2024, 02/26/2023, 02/23/2022, 01/06/2021, 12/17/2019, 11/07/2018, 10/30/2017, 05/25/2016. MAMMOGRAPHY TECHNIQUE: 2D and 3D (tomosynthesis) digital mammographic views obtained, with additional images as needed for full coverage. Current study was also evaluated with a Computer Aided Detection (CAD) system. ULTRASOUND TECHNIQUE TARGETED Right Breast Ultrasound: Real-time ultrasound exam was performed focused to area of clinical and/or imaging concern. Real-time matta scale and color doppler imaging of the area of clinical interest was performed with image documentation. DENSITY C. The breasts are heterogeneously dense, which may obscure small masses. MAMMOGRAPHY FINDINGS Right: Biopsy marker present on the right. There are no suspicious masses, calcifications, or other findings in the breast. No significant change from comparison. The previously seen asymmetry in the superior breast from mammogram 03/11/2024 is stable on prior mammograms dating back to at least 05/25/2016. Left: No suspicious mass, asymmetry, microcalcification, or other abnormality seen. No significant change from comparison. ULTRASOUND FINDINGS Right: Upper at 12:00, 3 cm from nipple, measuring 0.7 x 0.6 x 0.7 cm: Correlating with area of biopsy there is a hypoechoic cyst vs solid mass. The lesion is unchanged in size and appearance. A vision clip is located within the finding. Pathology revealed benign dense hyalinizing fibrosis with focal duct ectasia which was deemed concordant with imaging. IMPRESSION: Right * No evidence of malignancy with benign findings. Left * No evidence of malignancy. RECOMMENDATIONS Bilateral * Annual screening mammography. COMMENTS: Findings and recommendations were conveyed to the patient during today's evaluation. OVERALL ASSESSMENT CATEGORY BI-RADS-2: Benign. The [employer] recommends annual screening mammography beginning at age 40 for women with average risk of breast cancer. ELECTRONICALLY SIGNED: Pat Ackerman M.D. on 03/09/2025 at 02:04:30 PM PT Interpreting Station ID: [id number]
== END ==
LOC: MAMMO 11:57
PROVIDERS: PCP Family Medicine; Referring Provider Family Medicine; Visit Provider Family Medicine
DX: R92.8 Other abnormal and inconclusive findings on diagnostic imaging of breast (principal); N63.15 Unspecified lump in the right breast, overlapping quadrants; Z98.890 Other specified postprocedural states; Z80.3 Family history of malignant neoplasm of breast
CPT/HCPCS: 76642; 77066; G0279

== ENCOUNTER → 2025-04-06 11:54 | Outpatient (CLI) | payer MEDICARE, SELFPAY ==
--- NOTE | 2025-04-06 11:56 | DI.RAD.S_ITS ---
PROCEDURE: XR KNEE RT 3V INDICATIONS: fall, pain TECHNIQUE: 3 views of the knee were acquired. COMPARISON: None. FINDINGS: Bones: Mild medial joint space narrowing, small osteophyte formation. No fractures or dislocations. No suspicious bony lesions. Soft tissues: Mild vascular calcifications. No joint effusion. No suspicious soft tissue calcifications. IMPRESSION: Mild medial joint degeneration. Dictated by: Angelique Peter RRAlvaro Interpreted: Alejandra Chadwick MD on 04/06/2025 at 12:36 Transcribed by: RAIMUNDO on 04/06/2025 at 12:37 Approved by: Alejandra Chadwick M.D. on 04/06/2025 at 17:39
== END ==
LOC: LAB 11:55 → RAD 11:57
PROVIDERS: PCP Family Medicine; Referring Provider Family Medicine; Visit Provider Family Medicine
DX: M17.11 Unilateral primary osteoarthritis, right knee (principal); M25.561 Pain in right knee
CPT/HCPCS: 73562